=== PATIENT | female | born 1960 | race Caucasian/White ===

== ENCOUNTER → 2021-11-10 13:43 | Outpatient (BNVA) | payer OTHER, SELFPAY | PROVIDERS: Visit Provider Dietitian, Registered | DX: E66.9 Obesity, unspecified (principal); Z68.34 Body mass index [BMI] 34.0-34.9, adult; Z71.3 Dietary counseling and surveillance | CPT/HCPCS: 97802 ==

== ENCOUNTER → 2022-01-12 09:06 | Outpatient (BNVA) | payer OTHER, SELFPAY | PROVIDERS: Visit Provider Dietitian, Registered | DX: E66.9 Obesity, unspecified (principal); Z68.33 Body mass index [BMI] 33.0-33.9, adult | CPT/HCPCS: 97803 ==

== ENCOUNTER 2024-05-25 10:17 | Outpatient (REF) | payer OTHER, SELFPAY ==
--- NOTE | ~2024-05-25 | XR_ITS ---
EXAMINATION: XR SHOULDER 2 OR MORE VIEWS LEFT HISTORY: M25.512 - Pain in left shoulder COMPARISON: There are no prior studies available for comparison. FINDINGS: Four views of the left shoulder are submitted. Osseous mineralization is normal. There is no fracture or dislocation. The glenohumeral joint is maintained. There is moderate osteoarthritis of the AC joint, with joint space narrowing and osteophyte formation. A soft tissue calcification adjacent to the greater tuberosity of the humerus is likely related to the rotator cuff. XR/XR shoulder LT min 2V IMPRESSION: Moderate osteoarthritis of the AC joint. Probable rotator cuff calcification. Electronically signed by: Parvez Brady MD 05/26/2024 12:32 PM EDT
--- OUTSIDE RECORDS SUMMARY | 2024-05-25 13:41 | XMS_ITS | Clinical Summary ---
Author Organization [facility] Address [address] [place] [address] Care Team Providers Care Product Engineering Manager Name Role Phone Partha Graham Primary Care Provider [phone] Source Comments PLEASE NOTE, if this patient [...] asthma, unspecified asthma severity, unspecified whether persistent ([facility]) Dispense one nebulizer for patient with [...] asthma, unspecified asthma severity, unspecified whether persistent ([facility]) Inhale 2 Puffs into the lungs every [...] (obstructive sleep apnea) 08/27/2018 Overview (12/12/2018): 11/05/18, [facility], Yashira Dominguez CUTTER GRINDER OPERATOR: [facility], the [employer] respiratory [employer], has informed us that they were unable to connect with you to schedule set up with CPAP. We had discussed ordering this for treatment of sleep apnea. As they were unable to reach you, they have cancelled the order. 09/06/18, [facility], Home Sleep Apnea Testing, Kalia Olivares MD, Recommendations: 1. Start on AutoCPAP 8-15cm H2) with compliance data followed. 2. If started on AutoCPAP, [place] [employer] guidelines recommend that [...] diagnosed, CPAP machine given to patient through [facility] Constipation 04/09/2018 Class 2 obesity due [...] by [employer] Carpal tunnel syndrome 06/10/2016 Asthma ([facility]) 11/24/2013 Environmental allergies 11/24/2013 GERD (gastroesophageal reflux disease) 4 Overweight 11/24/2013 Encounters Date Type Department Care Team Description 05/23/2024 3:00 PM EDT Office Visit [facility] [address] [place] [address] Yazmin Lubin FNP Chronic left ear pain (Primary Dx); Acute effusion of left ear; Vertigo 05/01/2024 1:00 PM EDT Telemedicine Visit [facility] [address] [place] [phone] Partha Graham PA Uncomplicated asthma, unspecified asthma severity, unspecified whether persistent (Primary Dx); Primary hypertension 04/03/2024 5:20 PM EST Office Visit [facility] [address] [place] [phone] Partha Graham PA Primary hypertension (Primary Dx); [...] 06/25/2023 06/24/2022, 08/02/2020, 11/03/2017 FIT/gFOBT 08/04/2023 08/03/2022 [id number]-64 ( season) 2023 Imm-DTaP/Tdap/Td (4 - Td [...] BLOOD DRAW Edited Res ult - Final [employer] [address] [place] [address], [address] [facility] [id number] [place] [id number], * THINPREP PAP & HPV MRNA E6/E7 RFLX HPV 16,18/[address]/NG (07/14/2022 9:23 AM EDT) CHLAMYDIA TRACHOMATIS RNA, TMA NOT DETECTED NOT DETECTED [employer] NEISSERIA GONORRHOEAE RNA, TMA NOT DETECTED NOT DETECTED [employer] COMMENT [employer] CLINICAL INFORMATION See Note [employer] Comment:POSTMENOPAUSAL~ROUTI NE EXAM LMP See Note [employer] Comment:NONE GIVEN PREV. PAP See Note [employer] Comment:NONE GIVEN PREV. BX See Note [employer] Comment:NONE GIVEN SOURCE See Note [employer] Comment:Cervix STATEMENT OF ADEQUACY See Note [employer] Comment: Satisfactory for evaluation. Endocervical/transformation zone component present. INTERPRETATION/RESU LT See Note [employer] Comment:Negative for intraep ithelial lesion or malignancy. [employer] See Note [employer] Comment: KR, CT(ASCP) CT screening location: [address] ??[address] REVIEW [facility] See Note [employer] Comment: CMG, CT(ASCP) CT screening location: [address] ??[address] COMMENT [employer] HPV MRNA E6/E7 Not Detected Not Detected [employer] [facility] Comment: Methodology: Scleroscope Tester-Mediated Amplification This assay detects E6/E7 viral messenger RNA (mRNA) from 14 high-risk HPV types (16,18,31,33,35,39,45,51,52,56,58,59,66,68). Cervical sources are required for HPV testing. If a vaginal source from a patient who has had a total hysterectomy with removal of cervix was submitted, please contact the testing laboratory for alternative testing options. For additional information, please refer to http://[employer].Logical Apps/faq/KVL670g7 (This link if provided for information/ educational purposes only.) Swab Cervix uteri structure / Unknown 07/14/2022 9:23 AM EDT 07/15/2022 1:04 PM EDT Narrative [facility] - 07/21/2022 2:57 PM EDT EXPLANATORY NOTE: [...] test SurePath(TM) specimens have been determined by [employer]. The modifications have not been cleared or approved by the FDA. This assay has been validated pursuant to the CLIA regulations and is used for clinical purposes. For additional information, please refer to https://education.Logical Apps/faq/GML818 (This link is being provided for information/ educational purposes only.) Partha [facility] - NO BLOOD DRAW Final Resu lt [employer] [address] [address], [employer] [address] [address] * HIV 1/2 AG & AB W/RFLX (4TH GEN) (06/24/2022 10:14 AM EDT) HIV AG/AB, 4TH GEN NON-REAC TIVE NON-REAC TIVE [employer] Comment: HIV-1 antigen and HIV-1/HIV-2 antibodies were [...] ?? For additional information please refer to http://education.Logical Apps/faq/VLL591 (This link is being provided for informational/ educational purposes only.) The performance of this assay has not been clinically validated in patients less than 2 years old. Blood Blood / Unknown 06/24/2022 1 0:14 AM EDT 06/24/2022 10:14 AM EDT [facility] - BLOOD DRAW Final Result [employer] [address] [address], [employer] [address] [address] * (ABNORMAL) LIPID PANEL (06/24/2022 10:14 AM EDT) Pathologist [facility] CHOLESTEROL, TOTAL 240(H) <200 mg/dL [employer] [facility] HDL CHOLESTEROL 59 > OR = 50 mg/dL [employer] TRIGLYCERIDES 225(H) <150 mg/dL [employer] Comment: If a non-fasting specimen was collected, consider repeat triglyceride testing on a fasting specimen if clinically indicated. [place] et al. J. of Clin. Lipidol. 2015;9:129-169. LDL-CHOLESTEROL 145(H) 99 mg/dL (calc) [employer] Comment: Reference range: <100 Desirable range <100 mg/dL for primary prevention; ?? <70 mg/dL for patients with CHD or diabetic patients with > or = 2 CHD risk factors. LDL-C is now calculated using the Diogo-Regan calculation, which is a validated novel method providing better accuracy than the Friedewald equation in the estimation of LDL-C. Diogo ALONSO et al. ALEXANDRE. 2013;310(19): 6312-9269 (http://education.Sagebin/faq/UCV546) CHOL/HDLC RATIO 4.1 <5.0 (calc) [employer] NON-HDL CHOLESTEROL 181(H) <130 mg/dL (calc) [employer] Comment: For patients with diabetes plus 1 major ASCVD risk factor, treating to a non-HDL-C goal of <100 mg/dL (LDL-C of <70 mg/dL) is considered a therapeutic option. Blood Blood / Unknown 06/24/2022 1 0:14 AM EDT 06/24/2022 10:14 AM EDT Par[facility] - BLOOD DRAW Final Result [employer] [address] [address], [employer] [address] [place] [address] * COMPREHENSIVE METABOLIC PANEL (06/24/2022 10:14 AM EDT) [facility] GLUCOSE 99 65 - 99 mg/dL [employer] Comment: ?Fasting reference interval UREA NITROGEN (BUN) 17 7 - 25 mg/dL [employer] CREATININE (blood) 0.67 0.50 - 1.03 mg/dL [employer] EGFR 101 > OR = 60 mL/min/1 .73m2 [employer] Comment: The eGFR is based on the CKD-EPI 2020 equation. To calculate the new eGFR from a previous Creatinine or Cystatin C result, go to https://www.kidney.org/professionals/ kdoqi/gfr%5Fcalculator BUN/CREATININE RATIO NOT APPLICABLE 6 - 22 [employer] SODIUM 140 135 - 146 mmol/L [employer] POTASSIUM 4.1 3.5 - 5.3 mmol/L [employer] CHLORIDE 104 98 - 110 mmol/L [employer] CARBON DIOXIDE 27 20 - 32 mmol/L [employer] CALCIUM 9.7 8.6 - 10.4 mg/dL [employer] [facility] PROTEIN, TOTAL 6.9 6.1 - 8.1 g/dL [employer] [facility] ALBUMIN 4.4 3.6 - 5.1 g/dL [employer] [place] [employer] GLOBULIN 2.5 1.9 - 3.7 g/dL (calc) [employer] [facility] ALBUMIN/GLOBUL IN RATIO 1.8 1.0 - 2.5 (calc) [employer] [place] [employer] BILIRUBIN, TOTAL 0.5 0.2 - 1.2 mg/dL [employer] [facility] ALKALINE PHOSPHATASE 64 37 - 153 U/L [employer] [facility] AST 15 10 - 35 U/L [employer] [facility] ALT 16 6 - 29 U/L [employer] [facility] Blood Blood / Unknown 06/24/2022 1 0:14 AM EDT 06/24/2022 10:14 AM EDT [facility] - BLOOD DRAW Edited Result - Final [employer] [address] [address], [employer] [address] [address] * HEPATITIS C AB W/RFLX HCV RNA, QT, RT PCR (08/06/2020 3:25 PM EDT) HEPATITIS C ANTIBODY NON-REACT DEMARCUS NON-REACT DEMARCUS [employer] [facility] SIGNAL TO CUT-OFF 0.01 <1.[address] [employer] [facility] Comment: HCV antibody was non-reactive. There is no laboratory evidence of HCV infection. In most cases, no further action is required. However, if recent HCV exposure is suspected, a test for HCV RNA (test code 17127) is suggested. For additional information please refer to http://education.Logical Apps/faq/KUJ87l2 (This link is being provided for informational/ educational purposes only.) Blood Blood / Unknown 08/06/2020 3 :25 PM EDT 08/06/2020 3:25 PM EDT Narrative [employer] - 08/07/2020 2:03 AM EDT FASTING:NO Partha [facility] - BLOOD DRAW Edited Result - Final [facility] [address] [address], [facility] [address] [address] from Last 3 Months or Most Recently Relevant to Health Maintenance Insurance [facility] Member Subscriber Plan / Payer (Ef fective 2020-Present) Name:Elina Muhammad Relation to Subscriber:Self Name:Elina Muhammad Payer ID:[id number] Group ID:Not on file Type:Indemnity Address: [place] [address] [place] [address] Care Teams Product Engineering Manager Relationship Specialty Start Date End Date Partha Graham PA [address] [place] [address] PCP - General Internal Medicine 09/30/17
--- OUTSIDE RECORDS SUMMARY | 2024-05-25 13:41 | XMS_ITS | Encounter Summary ---
Author Organization [facility] Address [address] [place] [address] Care Team Providers Care Farm Appraiser Name Role Phone Partha Graham Primary Care Provider [phone] Reason for Referral * Otolaryngology (Urgent) - Pending Review Specialty Diagnoses / Procedures Referred By Nancy cordoba Referred To Contact Diagnoses Chronic left ear pain Yazmin Lubin FNP [address] [place] [phone] Phone: tel: fax: [facility] [address] [place] [address] Phone: tel: Referral ID Status Reason Start Date Expiration Date Visits Requested Visits Authorized [id number] Pending Review Specialty Services Required 05/23/2024 05/23/2025 1 1 Comments The patient with complains of recurrent ear pain - please evalatate and treat - Reason for Visit * Reason Comments Ear Pain Dizziness Encounter Details Date Type Department Care Team ([facility] st Contact Info) Description 05/23/2024 3:00 PM EDT Office Visit [facility] [address] [place] [address] Yazmin Lubin FNP [address] [place] [phone] Chronic left ear pain (Primary Dx); Acute [...] from the original note were not included. [id number] Vertigo (Unknown Cause) Vertigo is a false [...] nausea, vomiting, and dizziness, you may use zlaz-qkl-vjlzbbh motion sickness pills. If you have any questions about an bvue-fua-jqiqxaj medicine or its side effects, talk with [...] speech Last Reviewed Date: 2021 00:00:00 ?? [phone] [employer]. All rights reserved. This information is not intended as a substitute for professional medical care. Always follow your healthcare professional's instructions. Y IRIZARRY - BALJEET Comer - 05/23/2024 3:29 PM EDT Images from the original note were not included. [id number] Dizziness (Vertigo) and Balance Problems: Diagnostic Tests An cracker dough mixer specializes in problems of the ear, nose, [...] make you dizzy in some cases. ?? Long Lane-Hallpike maneuver. Your healthcare provider will gently turn [...] causes. Last Reviewed Date: 2023 00:00:00 ?? [phone] [employer]. All rights reserved. This information is not intended as a substitute for professional medical care. Always follow your healthcare professional's instructions. Y IRIZARRY - BALJEET Comer - 05/23/2024 3:28 PM EDT Images from the original note were not included. 10996 Managing Dizziness (Vertigo) With Medicines Although medicines [...] from your medicines. Before using a new ppvf-jfk-dctkmux medicine, check with your provider or the [...] fainting. Last Reviewed Date: 2024 00:00:00 ?? [phone] [employer]. All rights reserved. This information is not [...] documented as of this encounter Care Teams Farm Appraiser Relationship Specialty Start Date End Date Partha Graham PA [address] [place] [address] PCP - General Internal Medicine 09/30/17 documented as of this encounter
--- OUTSIDE RECORDS SUMMARY | 2024-05-25 13:41 | XMS_ITS | Clinical Summary ---
Author Organization [facility] Address [address] [place] [address] Phone Care Team Providers Care Vp Emerging Media Name Role Phone Partha Graham Primary Care Provider [phone] Allergies Active Allergy Reactions Criticality Noted Date [...] Description 05/19/2024 2:15 PM EDT Ancillary Procedure [facility] [address] [place] [address] Atypical chest pain 03/02/2024 9:38 AM EST - 03/02/2024 11:59 PM EST Hospital Encounter [facility] [place] [address] [place] [phone] Low back pain, unspecified Discharge Disposition: Home [...] DX: Abnormal Pap smear of cervix; COMMENT: [id number] Cone biopsy Unspecified asthma(493.90) DX:Un specified asthma(493.90); [...] Signed Date: 03/02/2024 13:58 ET Workstation ID: [id number] Transcribed By: Self Edit Transcribed Date: 03/02/2024 [...] Signed Date: 03/02/2024 13:58 ET Workstation ID: [id number] Transcribed By: Self Edit Transcribed Date: 03/02/2024 13:28 ET Result [facility] Partha MENDOZA IMG BI PROCEDURES Final Result * Annual BMP Blood Test (12/31/2021) [facility] Annual BMP Blood Test abstracted Historical Provider HEALTH MAINTENANCE Final Result * HIV Screening (07/04/2021) [facility] HIV Screening abstracted [facility] Provider HEALTH MAINTENANCE Final Result * Hepatitis C Screening (07/04/2021) [facility] Hepatitis C Screening abstracted [facility] Provider HEALTH MAINTENANCE Final Result * (ABNORMAL) Lipid panel (07/04/2021) [facility] LDL/HDL Ratio 5(A) 0 - 4 Triglycerides 436(A) 0 - 150 mg/dL Cholesterol 248(A) 0 - 200 mg/dL HDL 52 >=40 mg/dL LDL Cholesterol 109(A) 0 - 100 mg/dL Blood Venous blood specimen / Unknown Result [facility] Provider LAB BLOOD ORDERABLES Kavya l Result * Cervical Cancer Screening: HPV (12/06/2019) [facility] Cervical Cancer Screening: HPV negative, abstracted Result [facility] Provider HEALTH MAINTENANCE Final Result * Colonoscopy (08/02/2014) [facility] Colonoscopy no interpretation , abstracted Anatomical Region Laterality Modality Other [facility] Provider HEALTH MAINTENANCE Final Result from Last 3 Months or Most Recently Relevant to Health Maintenance Insurance [facility] [facility] MED[employer] Member Subscriber Plan / Payer (Ef fective 2020-Present) Name:Elina Muhammad Relation to Subscriber:Self Name:Elina Muhammad Payer ID:[id number] Group ID:[id number] Type:Not on file Address: [facility] [address] [place] [id number] Care Teams Vp [employer]ging Media Relationship Specialty Start Date End Date Partha Graham PA [address] [place] [address] PCP - General Physician Human Resources Team Member 03/02/24
== END 2024-05-25 10:18 | disposition home or self-care (01) ==
LOC: HO.HMGCX 10:17
PROVIDERS: PCP Physician Assistant; Visit Provider Internal Medicine Rheumatology
DX: M25.512 Pain in left shoulder (principal); M15.4 Erosive (osteo)arthritis; M17.0 Bilateral primary osteoarthritis of knee
CPT/HCPCS: 73030; 99212

== ENCOUNTER 2024-05-25 10:17 | Outpatient (AMB) | payer OTHER, SELFPAY ==
--- NOTE | 2024-05-25 10:19 | A.OFFVIS_ITS ---
Vital Signs 05/25/24 10:20 Height 5 ft 1 in Weight 181 lb 3.52 oz BMI 34.2 BP 124/76 Blood Pressure Location Lt brachial Position Sitting Pulse 76 Pulse Source Pulse Oximeter Pulse Oximetry (%) 97 Oxygen Delivery Method Room Air Intake Visit Reasons: RA Intake Note: Patients presents today for a Ra follow up of both hands Accompanied by: Self / Same As Patient Allergies celecoxib [From Celebrex] Allergy (Intermediate, Verified 05/25/24 10:23) Hives HPI HPI RA: Details: Left shoulder pain for a few months. Hard to lift. Hard to tie bra. Rainy days and snow days exacerbate the pain. She does shoulder exercises at home. She continues to have pain in her hands. Right 2nd finger is swollen. She has limited with lifting not more than 5 lb with her hands due to pain. She has been using naproxen and Tylenol PRN pain. She does stretches for her shoulder sometimes. She reports compliance with hand exercises regularly learned from PT in the past. Knee pain improved with cortisone injection from last visit spring/early summer. Review of Systems Const All systems reviewed & are unremarkable except as noted in HPI and below Physical Exam Vital Signs: Last Vital Signs Pulse 76 05/25/24 10:20 BP 124/76 05/25/24 10:20 Pulse Ox 97 05/25/24 10:20 Oxygen Delivery Method Room Air 05/25/24 10:20 BMI result Body Mass Index 34.2 Const Other: General: Comfortable CVS: RRR Respiratory: clear to auscultation bilaterally. Good respiratory effort Skin: No lesions seen MSK: Tender to palpate left anterior shoulder. Normal range of motion of shoulders. She has pain in left shoulder with active range of motion. Tender to palpate right 4th PIP. Judy's nodes and Heberden's nodes present. She is unable to staff reporter her right hand. Nontender knees. Normal range of motion of knees. Assessment & Plan Assessment & Plan (1) Left shoulder pain: Comment: Differential diagnosis includes chronic rotator cuff tendinopathy versus osteoarthritis. We discussed conservative management. Code(s): M25.512 - Pain in left shoulder Category: Medical Plan: PT ordered X-ray left shoulder ordered She will try Tylenol 325 mg x 2 or 4 once when needed for shoulder pain. We discussed the maximum daily dose of acetaminophen as 4000 mg daily. Return to clinic in 3 months (2) Erosive osteoarthritis of hands, bilateral: Comment: Pain is uncontrolled. She has chronic synovitis right 4th PIP previously failed intra-articular cortisone injection but had benefit with short course of prednisone. She agreed to try short course of prednisone again. Rheumatology history: Meloxicam ineffective. Chronic right 4th PIP synovitis failed intra-articular cortisone injection but responsive to low-dose prednisone course. Naproxen PRN helpful. HCQ discussed but patient did not want to move forward due to fear of side effects. Code(s): M15.4 - Erosive (osteo)arthritis Category: Medical Plan: Prednisone prescribed Continue to do hand exercises daily learned from PT in the past Avoid naproxen when on prednisone Return to clinic in 3 months (3) Osteoarthritis of knees, bilateral: Comment: Pain is controlled with last cortisone injections 2023. Code(s): M17.0 - Bilateral primary osteoarthritis of knee Category: Medical Qualifiers: Osteoarthritis type: primary Qualified Code(s): M17.0 - Bilateral primary osteoarthritis of knee Plan: Monitor clinically [facility] last 3 clinic note Return to clinic in 3 months Orders: Orders XR shoulder LT min 2V Today M25.512 - Pain in left shoulder PT Evaluation and Treatment Today M25.512 - Pain in left shoulder Medications: New prednisone Take 2 tablet daily 7 days then 1 tablet daily 1 week then stop. Take prednisone with food. Hold naproxen. 5 mg PO DIRECTED 21 tabs 0RF Coding Level of Care Code Est Pt Level 4 (59258) Complex EM visit Add On G2211 Diagnoses Left shoulder pain M25.512 Erosive osteoarthritis of hands, bilateral M15.4 Primary osteoarthritis of both knees M17.0 Osteoarthritis type: primary Time Spent (min) 30
[2024-05-25 10:20] VITALS: BP 124/76; PULSE 76; O2SAT 97; BMI 34.2
--- OUTSIDE RECORDS SUMMARY | 2024-05-25 11:09 | XMS_ITS | Clinical Summary ---
Author Organization [facility] Address [address] [place] [address] Phone Care Team Providers Care Meter Installer Name Role Phone Partha Graham Primary Care Provider [phone] Allergies Active Allergy Reactions Criticality Noted Date Comments Celecoxib Hives 03/15/2019 Medications acetaminophen (TYLENOL) 325 mg tablet Take 1 tablet (325 mg total) by mouth 3 times daily as needed. 4 Active albuterol HFA (PROAIR HFA ; PROVENTIL HFA ; VENTOLIN HFA) 90 mcg/actuation inhaler Inhale 2 Puffs into the lungs every 4 hours as needed for Cough or Wheezing. 8 Active propylene glycol-glycerin (ARTIFICIAL TEARS) 1-0.3 % drops 15 mL. 2 Active fluticasone propionate (FLONASE) 50 mcg/actuation nasal spray 2 sprays to each nostril daily 2 Active loratadine (CLARITIN) 10 mg tablet Take 1 tablet (10 mg total) by mouth daily. 4 Active NON FORMULARY POLYETHYL GLYCOL-PROPYL GLYCOL OP- apply to the eye. Active Active Problems Problem Noted Date Diagnosed Date H. pylori infection 01/01/2022 Lichen sclerosus 03/08/2017 Carpal tunnel syndrome 06/10/2016 Asthma 11/24/2013 GERD (gastroesophageal reflux disease) 4 Overweight 11/24/2013 Encounters Date Type Department Care Team Description 05/19/2024 2:15 PM EDT Ancillary Procedure [facility] [address] [place] [address] Atypical chest pain 03/02/2024 9:38 AM EST - 03/02/2024 11:59 PM EST Hospital Encounter [facility] [place] [address] [place] [id number] Low back pain, unspecified Discharge Disposition: Home or Self Care from Last 3 Months Immunizations Name Administration Dates Next Due Influenza Quadravalent, MDCK , 0.5ml, with preservative (Flucelvax) 6mo and older 11/12/2016 Influenza trivalent, with pr eservative (Fluzone; Afluria) 6mo and older 01/09/2016,11/24/2013 Measles / Rubella 11/04/2009 Tdap Tetanus diptheria acell ular pertussis (Boostrix; Adacel) 7yo and older 11/24/2013,11/04/2009 Surgical History Surgery Date Site/Laterality Comments TONSILLECTOMY PROCEDURE: HISTORICAL TONSILLECTOMY OTHER SURGICAL HISTORY 03/06/13 PROCEDURE: MAMMOGRAM COLONOSCOPY 2014 PROCEDURE: HISTORICAL COLONOSCOPY; COMMENT: minimal diverticulosis Medical History Medical History Date Comments Abnormal Pap smear of cervix DX: Abnormal Pap smear of cervix; COMMENT: [id number] Cone biopsy Unspecified asthma(493.90) DX:Un specified asthma(493.90); COMMENT: controlled with inhalers Other and unspecified noninf ectious gastroenteritis and colitis(558.9) DX:Other and unspec ified noninfectious gastroenteritis and colitis(558.9); COMMENT: gastritis Diverticulosis of colon (wit hout mention of hemorrhage) 08/02/2014 DX:Diverticulosis of colon ( without mention of hemorrhage) Family History Medical History Relation Name Comments Coronary artery disease Father Diabetes Father Other: bladder cancer Maternal Grandmother (originally stated to be ovarian ca) eval done by [facility] Hypertension Mother osteoarthritis Diabetes Sister 1 Diabetes Sister 2 Relation Name Status Comments Father Maternal Grandmother Mother Sister 1 Sister 2 Social History Tobacco Use Types Packs/Day Years Used Date Smoking Tobacco: Never Smokeless Tobacco: Never Alcohol Use Standard Drinks/Week Comments No 0 (1 standard drink = 0.6 oz pur e alcohol) Comments No Sex and Gender Information Value Date Recorded Sex Assigned at Female 03/02/2024 8:04 AM EST Legal Sex Female 4:39 AM EST Gender Identity Female 03/02/2024 8:04 AM EST Sexual Orientation Straight 03/02/2024 8: 04 AM EST Obstetrics History Para Term AB IAB SAB Ectopic Multiple Livin g Live Births 3 Last Filed Vital Signs Vital Sign Reading Time Taken Comments Blood Pressure 157/85 05/19/2024 2:03 PM EDT Pulse 70 10/27/2022 1:37 PM EDT Temperature - - Respiratory Rate - - Oxygen Saturation - - Inhaled Oxygen Concentration - - Weight 82.6 kg (182 lb) 05/19/2024 2:03 PM EDT Height 61 cm (2' 0.02 ) 05/19/2024 2:03 PM EDT Body Mass Index 221.86 05/19/2024 2:03 PM EDT Plan of Treatment Health Maintenance Due Date Last Done Comments Zoster Vaccines (1 of 2) 2012 Pneumococcal Vaccine: 50+ Years (2 of 2 - PCV) 04/06/2019 04/06/2018 Pneumococcal Vaccine: Pediatrics (0 to 5 Years) and At-Risk Patients (6 to 64 Years) (2 of 2 - PCV) 04/06/2019 04/06/2018 Medicare Annual Wellness Visit 01/31/2022 Social Influencers of Health Screening 01/31/2022 RSV Immunization Adult Patients (1 - Risk 60-74 years 1-dose series) 2022 COVID-19 Vaccine ( - season) 2023 DTaP,Tdap,and Td Vaccines (3 - Td or Tdap) 11/25/2023 11/24/2013, 11/04/2009 Hypertension/CHF/CAD Annual BMP Blood Test 05/19/2024 06/24/2022, 12/31/2021 Influenza Vaccine (Season Ended) 2024 12/13/2018, 11/03/2017, 11/12/2016, Additional history exists Cervical Cancer Screening: HPV 12/05/2024 12/06/2019 Depression Screening 02/07/2025 02/08/2024 Colorectal Cancer Screening: FIT-DNA (Cologuard) 08/03/2025 08/03/2022 Breast Cancer Screening 03/02/2026 03/02/19, 07/07/2021, 01/12/2017 Cholesterol Screening (Lipid Panel) 06/25/2027 06/24/2022, 06/24/2022, 07/04/2021, Additional history exists Colorectal Cancer Screening: Colonoscopy Discontinued 08/02/2014 HIV Screening Completed 07/04/2021 Hepatitis C Screening Completed 07/04/2021, 021 HIB Vaccines Aged Out No longer eligi ble based on patient's age to complete this topic HPV Vaccines Aged Out No longer eligi ble based on patient's age to complete this topic Hepatitis A Vaccines Aged Out No long er eligible based on patient's age to complete this topic Hepatitis B Vaccines Aged Out No long er eligible based on patient's age to complete this topic IPV Vaccines Aged Out No longer eligi ble based on patient's age to complete this topic MMR Vaccines Aged Out No longer eligi ble based on patient's age to complete this topic Meningococcal ACWY Vaccine Aged Out N o longer eligible based on patient's age to complete this topic Meningococcal B Vacine Aged Out No lo nger eligible based on patient's age to complete this topic RSV Immunization Patients Under 20 months Aged Out No longer eligible based on patient's age to complete this topic Varicella Vaccines Aged Out No longer eligible based on patient's age to complete this topic Procedures Procedure Name Priority Date/Time Associated Diagnosis Comments STRESS TEST ONLY EXERCISE Routine 05/19/2024 2:33 PM EDT Atypical chest pain MG MAMMO DIGITAL SCREENING W REYNALDO BILAT Routine 03/02/2024 9:56 AM EST Low back pain, unspecified ANNUAL BMP BLOOD TEST Routine 12/31/2021 HEPATITIS C SCREENING Routine 07/04/2021 HIV SCREENING Routine 07/04/2021 LIPID PANEL Routine 07/04/2021 HPV Routine 12/06/2019 COLONOSCOPY Routine 08/02/2014 from Last 3 Months or Most Recently Relevant to Health Maintenance Results * Exercise stress test (05/19/2024 2:33 PM EDT) Exercise/injec tion duration (min) 5 CV STRESS ONLY Exercise/injec tion duration (sec) 30 CV STRESS ONLY Peak SBP 170 mmHg CV STRESS ONLY Peak DBP 88 mmHg CV STRESS ONLY Peak HR 155 bpm CV STRESS ONLY Baseline HR 90 bpm CV STRES S ONLY Baseline SBP 157 mmHg CV STRE SS ONLY Baseline DBP 85 mmHg CV STRE SS ONLY Estimated workload 7.0 METS CV STRESS ONLY Percent HR 97 % CV STRESS ONLY Rate Pressure Product 26,350.0 mmHg*bpm CV STRESS ONLY Target HR 135 bpm CV STRESS ONLY Angina Index 0 CV STRE SS ONLY Max HR Percent 97 % CV ST RESS ONLY Anatomical Region Laterality Modality Cardiac Diagnost ic 05/19/2024 2:04 PM EDT 05/19/2024 2:35 PM EDT Narrative 05/22/2024 3:49 PM EDT ?Exercise stress test was performed. ??Patient exercised for 5-1/2 minutes to 97% of max predicted heart rate achieving a 7 MET workload. ?? Patient reported no symptoms during the stress test. Exercise capacity was average. Normal blood pressure response. ??Normal heart rate response to exercise. ?There were no symptoms of chest pain or shortness of breath reported with stress. ?ECG portion was nondiagnostic due to baseline ECG abnormalities. Stress ECG was non-diagnostic due to baseline ECG abnormalities. ??If clinical suspicion for ischemic heart disease is high, would consider repeating exercise stress testing with imaging. Stress Findings A Abhilash protocol stress test was performed. Overall, the patient's exercise capacity was average. The patient reached stage 2. Total stress time was 5 min and 30 sec. The patient experienced no angina during the test. The test was stopped because the patient experienced fatigue. The patient's hemodynamic response was adequate for diagnosis. Blood pressure demonstrated a normal response. Heart rate demonstrated a normal response. The patient reported no symptoms during the stress test. ECG 63-year-old female with hypertension and intermittent chest pain into rule out ischemia. Patient not on cardiac medications during testing Baseline EKG: Sinus rhythm with inverted T waves in lead III, V2, V3, V4, V5, V6. There is exacerbation of baseline ST abnormality during stress. There were no arrhythmias during recovery. The result of the stress ECG was non-diagnostic for ischemia due to baseline ECG abnormalities. Partha MENDOZA CV STRESS PROCEDURES Final Res ult * MG Mammo Digital Screening w Reynaldo bilat (03/02/2024 9:56 AM EST) Anatomical Region Laterality Modality Breast Bilateral Mammography 03/02/2024 1:20 PM EST Impressions 03/02/2024 1:58 PM EST No mammographic evidence of malignancy. ?? No suspicious interval change. A negative mammogram in the presence of a clinically suspicious palpable abnormality does not preclude the possibility of malignancy or alter the indications for biopsy. ASSESSMENT: ?? BI-RADS 1: NEGATIVE RECOMMENDATION(S): 1: Routine screening mammogram BILATERAL in 1 year. -------- FINAL REPORT -------- Dictated By: Kings Jean Dictated Date: 03/02/2024 13:20 ET Assigned Physician: Kings Jean Reviewed and Electronically Signed By: Kings Jean Signed Date: 03/02/2024 13:58 ET Workstation ID: [id number] Transcribed By: Self Edit Transcribed Date: 03/02/2024 13:28 ET Narrative 03/02/2024 1:58 PM EST EXAM: ??SCREENING MAMMOGRAPHY, BILATERAL HISTORY: ??SCREENING. ??No additional history. COMPARISON: ??08/27/2023, 07/06/2022, 11/14/2019 TECHNIQUE: Synthesized CC and MLO projections of each breast. ??Tomosynthesis of each breast in the CC and MLO projections. ADDITIONAL IMAGING: None Computer-aided detection was employed with the iCAD ??profound AI 3-D. TISSUE DENSITY: There are scattered areas of fibroglandular density. (BI-RADS category B) FINDINGS: RIGHT BREAST: No suspicious mass. No suspicious calcification. No distortion. ?? No additional suspicious right breast findings LEFT BREAST: No suspicious mass. No suspicious calcification. No distortion. ?? No additional suspicious left breast findings Procedure Note Kings Jean MD - 03/02/2024 EXAM: SCREENING MAMMOGRAPHY, BILATERAL HISTORY: SCREENING. No additional history. COMPARISON: 08/27/2023, 07/06/2022, 11/14/2019 TECHNIQUE: Synthesized CC and MLO projections of each breast.Tomosynthesis of each breast in the CC and MLO projections. ADDITIONAL IMAGING: None Computer-aided detection was employed with the iCAD profound AI 3-D. TISSUE DENSITY: There are scattered areas of fibroglandular density.(BI-RADS category B) FINDINGS: RIGHT BREAST: No suspicious mass. No suspicious calcification. No distortion. Noadditional suspicious right breast findings LEFT BREAST: No suspicious mass. No suspicious calcification. No distortion. Noadditional suspicious left breast findings IMPRESSION: No mammographic evidence of malignancy. No suspicious interval change. A negative mammogram in the presence of a clinically suspicious palpableabnormality does not preclude the possibility of malignancy or alter theindications for biopsy. ASSESSMENT: BI-RADS 1: NEGATIVE RECOMMENDATION(S): 1: Routine screening mammogram BILATERAL in 1 year. -------- FINAL REPORT -------- Dictated By: Kings Jean Dictated Date: 03/02/2024 13:20 ET Assigned Physician: Kings Jean Reviewed and Electronically Signed By: Kings Jean Signed Date: 03/02/2024 13:58 ET Workstation ID: [id number] Transcribed By: Self Edit Transcribed Date: 03/02/2024 13:28 ET Result [facility] Partha MENDOZA IMG BI PROCEDURES Final Result * Annual BMP Blood Test (12/31/2021) [facility] Annual BMP Blood Test abstracted Historical Provider HEALTH MAINTENANCE Final Result * HIV Screening (07/04/2021) [facility] HIV Screening abstracted [facility] Provider HEALTH MAINTENANCE Final Result * Hepatitis C Screening (07/04/2021) [facility] Hepatitis C Screening abstracted [facility] Provider HEALTH MAINTENANCE Final Result * (ABNORMAL) Lipid panel (07/04/2021) [facility] LDL/HDL Ratio 5(A) 0 - 4 Triglycerides 436(A) 0 - 150 mg/dL Cholesterol 248(A) 0 - 200 mg/dL HDL 52 >=40 mg/dL LDL Cholesterol 109(A) 0 - 100 mg/dL Blood Venous blood specimen / Unknown Result [facility] Provider LAB BLOOD ORDERABLES Kavya l Result * Cervical Cancer Screening: HPV (12/06/2019) [facility] Cervical Cancer Screening: HPV negative, abstracted Result [facility] Provider HEALTH MAINTENANCE Final Result * Colonoscopy (08/02/2014) [facility] Colonoscopy no interpretation , abstracted Anatomical Region Laterality Modality Other [facility] Provider HEALTH MAINTENANCE Final Result from Last 3 Months or Most Recently Relevant to Health Maintenance Insurance [employer] MEDICARE Member Subscriber Plan / Payer (Ef fective 2020-Present) Name:Elina Muhammad Relation to Subscriber:Self Name:Elina Muhammad Payer ID:[id number] Group ID:[id number] Type:Not on file Address: [facility] [address] [address] Care Teams Meter Installer Relationship Specialty Start Date End Date Partha Graham PA [address] [place] [address] PCP - General Physician Care Technician 03/02/24
--- OUTSIDE RECORDS SUMMARY | 2024-05-25 11:10 | XMS_ITS | Clinical Summary ---
Author Organization [facility] Address [address] [place] [address] Care Team Providers Care Excavating Supervisor Name Role Phone Partha Graham Primary Care Provider [phone] Source Comments PLEASE NOTE, if this patient is a minor, it may be UNLAWFUL to discuss sensitive information that is contained in these records (such as FAMILY PLANNING, MENTAL HEALTH or SUBSTANCE ABUSE) with the minor patient's parent or other person without the patient's specific authorization.[facility] Allergies Active Allergy Reactions Criticality Noted Date Comments Cats 04/06/2018 Celecoxib Hives 08/16/2018 Losartan Cough 05/01/2024 Pollen Extracts 04/06/2018 Medications EPINEPHrine (EPIPEN) 0.3 mg/0.3 mL pen injector INJECT 1 PEN IN THE MUSCLE ONE TIME DIRECTED 05/27/19 23 Active propylene glycol-glycerin 1-0.3 % drop 15 mL 06/21/19 22 Active pantoprazole (PROTONIX) 20 mg EC tablet TAKE 1 TABLET BY MOUTH TWICE DAILY FOR 14 DAYS 07/22/19 23 Active ibuprofen 600 mg tabletIndication s:Toe pain, right Take 1 Tablet by mouth 4 (four) times daily as needed for pain 90 Tablet 1 12/17/19 23 Active nebulizer accessoriesIndic ations:Uncomplic ated asthma, unspecified asthma severity, unspecified whether persistent ([facility]HS-HCC) Dispense one nebulizer for patient with asthma. 1 Each 02/02/20 23 Active nebulizer and compressorIndica tions:Uncomplica radha asthma, unspecified asthma severity, unspecified whether persistent (HHS-HCC) Dispense one nebulizer for patient with asthma. 1 Each 02/02/20 23 Active nebulizersIndica tions:Uncomplica radha asthma, unspecified asthma severity, unspecified whether persistent ([facility]) Dispense one nebulizer for patient with asthma. 1 Each 02/02/20 23 Active ipratropium-albu teroL (DUONEB) 0.5 mg-3 mg(2.5 mg base)/3 mL nebulizer solutionIndicati ons:Uncomplicate d asthma, unspecified asthma severity, unspecified whether persistent (HHS-HCC) Take 3 mL by nebulization 4 (four) times daily 90 mL 2 02/02/20 23 Active azithromycin (ZITHROMAX) 250 mg tabletIndication s:Bronchitis Take 2 tabs by mouth today, followed by 1 tab by mouth for four more days. 6 Tablet 02/02/20 23 Active loratadine (CLARITIN) 10 mg tablet TAKE 1 TABLET BY MOUTH EVERY DAY 90 Tablet 1 05/17/19 24 Active blood pressure monitorIndicatio ns:Primary hypertension,Aty pical chest pain Blood pressure goal < 140/90 1 Kit 04/03/19 25 Active albuterol HFA 90 mcg/actuation inhalerIndicatio ns:Uncomplicated asthma, unspecified asthma severity, unspecified whether persistent ([facility]) Inhale 2 Puffs into the lungs every 4 to 6 (four to six) hours as needed for shortness of breath or wheezing 8.5 g 1 05/02/19 25 Active acetaminophen (TYLENOL) 325 mg tablet Take 1 Tablet by mouth 3 (three) times daily as needed for pain or fever 120 Tablet 1 05/02/19 25 Active naproxen (NAPROSYN) 500 mg tablet Take 1 Tablet by mouth 2 (two) times daily as needed for other reason (pain) 60 Tablet 1 05/05/19 25 Active meclizine (ANTIVERT) 25 mg tabletIndication s:Vertigo Take 1 Tablet by mouth 2 (two) times daily as needed for dizziness for up to 30 days 30 Tablet 05/24/19 25 025 Active pseudoephedrine HCl (SUDAFED) 120 mg 12 hr tabletIndication s:Acute effusion of left ear Take 120 mg by mouth 2 (two) times daily for 5 days 10 Tablet 05/24/19 25 025 Active albuterol HFA 90 mcg/actuation inhaler INHALE 2 PUFFS BY MOUTH EVERY 4 TO 6 HOURS NEEDED 8.5 g 1 05/17/19 24 025 Discontin ued(Reord er (E-Cancel Not Sent)) acetaminophen (TYLENOL) 325 mg tablet TAKE 1 TABLET BY MOUTH THREE TIMES DAILY NEEDED 120 Tablet 1 05/17/19 24 025 Discontin ued(Reord er (E-Cancel Not Sent)) losartan (COZAAR) 25 mg tabletIndication s:Primary hypertension Take 1 Tablet by mouth once daily 60 Tablet 2 04/03/19 25 025 Discontin ued(Cance lled) naproxen (NAPROSYN) 500 mg tablet Take 1 Tablet by mouth 2 (two) times daily with a meal 60 Tablet 1 05/02/19 25 025 Discontin ued(Reord er (E-Cancel Not Sent)) Active Problems Patient Care Coordination No te Formatting of this note migh t be different from the original. Pre Visit Plan, 12/13/18, for Partha Grider PA-C patient in for Headaches concern. Kimberly Inman. 04/14/18, US Pelvis, [facility], Impression: There is a 4.4 x 2.5 x 2.2 cm left posterior uterine leiomyoma, minimally increased from 3.4 x 2.4 x 3.1 cm on the prior study of 12/07/2017. The septated left ovarian cyst seen on the prior examination has resolved. - Uterine Leiomyoma added to Pt's Problem list 12/12/18 by kimberly. Problem Noted Date Diagnosed Date Financial difficulties 02/08/2024 Helicobacter pylori infection 01/01/2022 Diabetes mellitus screening 03/02/2019 Seborrheic dermatitis, unspecified 03/02/2019 Depression 03/02/2019 Primary insomnia 12/13/2018 Chronic tension-type headache, not intractable 1 Tendinitis of finger of left hand 12/12/2018 Overview (12/12/2018): 09/30/18, [facility] note, A&P: (L) thumb tendinitis - placed in spica splint and recommended f/u with orthopedists soon. Take Naprosyn OTC and don't do heavy lifting. Uterine leiomyoma 12/12/2018 Overview (12/12/2018): 04/14/18, US Pelvis, [facility], Impression: There is a 4.4 x 2.5 x 2.2 cm left posterior uterine leiomyoma, minimally increased from 3.4 x 2.4 x 3.1 cm on the prior study of 12/07/2017. The septated left ovarian cyst seen on the prior examination has resolved. 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 We had discussed ordering this for treatment of sleep apnea. As they were unable to reach you, they have cancelled the order. 09/06/18, [facility], Home Sleep Apnea Testing, Kalia Olivares MD, Recommendations: 1. Start on AutoCPAP 8-15cm H2) with compliance data followed. 2. If started on AutoCPAP, [employer] guidelines recommend that they be referred to sleep clinic to help make sure their machines and masks are appropriately adjusted to the proper settings. 3. Patient should sleep in non- supine position. A positional device (E0190) could be ordered. 4. Patient should avoid alchol and sedative containing medications. 5. Weight loss recommended. 6. If nasal congestion is contributing to the sleep apnea or impeding Tx with CPAP, consider ipratropium nasal 0.03% one spray (21mcg) each nostril QHS prn. Sleep Study 08/11/18 - TAMMI diagnosed, CPAP machine given to patient through [facility] Constipation 04/09/2018 Class 2 obesity due to exces s calories without serious comorbidity with body mass index (BMI) of 35.0 to 35.9 in adult 04/09/2018 Osteoarthritis of hand 04/07/2018 Overview (07/06/2018): Sees [facility] - 5-14-19 celebrex 100mg 1 tab BID, labs, RTC in 3 months. 04/07/18 injections, continue diclofenac gel, d/c meloxicam. RTC in 3 months. Seasonal allergies 04/06/2018 PERICO positive 01/17/2018 Overview (12/12/2018): 01/17/18, lab result with Partha Graham: PERICO did come back elevated, at 1:320. She is being followed by rheumatology, and plan to follow up with them for further evaluation and treatment. Lichen sclerosus 03/08/2017 Family history of ovarian cancer 11/24/2016 Overview (06/19/2020): Overview: Did not book genetic appt 12/08 Overview: Did not book genetic appt 12/08 (originally stated to be ovarian ca) eval done by [facility] Did not book genetic appt 12/08 (originally stated to be ovarian ca) eval done by [facility] Carpal tunnel syndrome 06/10/2016 Asthma ([facility]) 11/24/2013 Environmental allergies 11/24/2013 GERD (gastroesophageal reflux disease) 4 Overweight 11/24/2013 Encounters Date Type Department Care Team Description 05/23/2024 3:00 PM EDT Office Visit [facility] [address] [place] [address] Yazmin Lubin FNP Chronic left ear pain (Primary Dx); Acute effusion of left ear; Vertigo 05/01/2024 1:00 PM EDT Telemedicine Visit [facility] [address] [place] [phone] Partha Graham PA Uncomplicated asthma, unspecified asthma severity, unspecified whether persistent (Primary Dx); Primary hypertension 04/03/2024 5:20 PM EST Office Visit [facility] [address] [place] [phone] Partha Graham PA Primary hypertension (Primary Dx); Atypical chest pain from Last 3 Months Immunizations Immunization Administration Dates Next Due Diphtheria, pertussis, tetan us, hepatitis B, Haemophilus Influenza Type b, (Pentavalent) - Non US 11/04/2009 Flu, Multi Dose 0.5 ML 12/13/2018,11/03/2017 INFLUENZA, SEASONAL, INJECTABLE 01/09/20 16,11/24/2013,11/10/2011,07/23,12/30/2007 Influenza, Whole 02/02/2007 Measles - Rubella, Live 11/04/2009 PNEUMOCOCCAL POLYSACCHARIDE PPV23 04/06/2018 Rubella, Live 11/04/2009 TDAP 11/24/2013,11/04/2009 Family History Medical History Relation Name Comments Diabetes Father Heart Problems Father CAD Breast cancer Maternal Aunt Cancer Maternal Grandmother Bladder Hypertension Mother Osteoarthritis Mother Diabetes Sister Relation Name Status Comments Father Maternal Aunt Maternal Grandmother Mother Sister Social History Tobacco Use Types Packs/Day Years Used Date Smoking Tobacco: Former Smokeless Tobacco: Never Tobacco Cessation:Counseling Given: Not Answered Alcohol Use Standard Drinks/Week Comments No 0 (1 standard drink = 0.6 oz pur e alcohol) Social Connections Answer Date Recorded Connectedness 1 02/08/2024 Financial Resource Strain Answer Date R ecorded Financial Resource Strain 2 2023 Stress Answer Date Recorded Stress 1 02/08/2024 Physical Activity Answer Date Recorded Physical Activity 0 10/17/2018 Food Insecurity Answer Date Recorded Food 1 02/08/2024 Transportation Needs Answer Date Record ed Transportation 1 02/08/2024 Housing Stability Answer Date Recorded Housing 1 02/08/2024 Safety and Environment Answer Date Rishabh rded Safety 0 06/24/2022 Utilities Answer Date Recorded Utilities 2 02/08/2024 Employment Answer Date Recorded Stress 0 06/24/2022 Comments No Sex and Gender Information Value Date Recorded Sex Assigned at Female 11/03/2017 8:26 AM PDT Legal Sex Female 8:24 AM PDT Gender Identity Female 11/03/2017 8:26 AM PDT Sexual Orientation Straight 11/03/2017 8: 26 AM PDT Last Filed Vital Signs Vital Sign Reading Time Taken Comments Blood Pressure 144/86 05/23/2024 2:40 PM EDT Pulse 87 05/23/2024 2:40 PM EDT Temperature 37.2 ??C (98.9 ??F) 05/23/2024 2:40 PM ED T Respiratory Rate 18 05/23/2024 2:40 PM EDT Oxygen Saturation 95% 02/08/2024 9:44 AM EST Inhaled Oxygen Concentration - - Weight 81.6 kg (180 lb) 05/23/2024 2:40 PM EDT Height 154.9 cm (5' 1 ) 04/03/2024 5:18 PM EST Body Mass Index 34.01 04/03/2024 5:18 PM EST Plan of Treatment Health Maintenance Due Date Last Done Comments Anxiety Screening [address] Colonography 11/24/2007 Colonoscopy 11/24/2007 Flexible Sigmoidoscopy 11/24/2007 Imm-Zoster, Recombinant (1 of 2) 2012 Imm-Pneumococcal (2 of 2 - PCV) 04/06/2019 04/06/2018 Medicare Annual Wellness Visit 06/25/2023 06/24/2022, 08/02/2020, 11/03/2017 FIT/gFOBT 08/04/2023 08/03/2022 [id number] ( season) 2023 Imm-DTaP/Tdap/Td (4 - Td or Tdap) 11/25/2023 11/24/2013, 11/04/2009, 11/04/2009 Alcohol and Drug Screen 02/23/2024 02/08/20 24, 06/24/2022, 06/24/2022, Additional history exists Depression Monitoring 05/08/2024 02/08/2024 , 06/24/2022, 06/19/2020, Additional history exists Imm-Influenza (#1) 2024 12/13/2018, 0 11/03/2017, 01/09/2016, Additional history exists Postponed from 10/24/2023 (Patient postponement) Breast Cancer Screening (Mammogram) 03/02/2025 03/02/2024, 03/02/2024, 07/06/2022, Additional history exists Tobacco Screening 05/24/2025 05/24/2024, 06/24/2022 Diabetes Screening 06/24/2025 06/24/2022, 0 08/06/2020, 08/06/2020, Additional history exists Lipid Screening 06/24/2025 06/24/2022, 0504/2021, 08/06/2020 Pap Smear 07/14/2025 07/14/2022 Colorectal Cancer Screening 08/03/2025 Fecal DNA 08/03/2025 08/03/2022 Cervical Cancer Screening 07/15/2027 Pap + HPV 07/15/2027 07/14/2022 Hepatitis C Screening Completed 08/06/2020, 018 HIV Screening Completed 06/24/2022, 07/04/2021 Cervical Ablation/Cold-Knife Conization Discontinued Cervical Cryotherapy Discontinued Colposcopy Discontinued Endometrial Biopsy Discontinued Excision/Leep Discontinued HPV Genotyping Discontinued Vaginal Pap Discontinued Vulvoscopy Discontinued Procedures Procedure Name Priority Date/Time Associated Diagnosis Comments REFERRAL FOR CARDIAC STRESS TEST Routine 05/19/2024 3:00 AM EDT Atypical chest pain REFERRAL FOR MAMMOGRAM Routine 03/02/2024 3:00 AM EST Low back pain, unspecified back pain laterality, unspecified chronicity, unspecified whether sciatica present COLOGUARD Routine 08/03/2022 3:00 AM EDT Routine adult health maintenance Encounter for colorectal cancer screening THINPREP PAP & HPV MRNA E6/E7 RFLX HPV 16,18/[address]/NG Routine 07/14/2022 9:23 AM EDT Encounter for Papanicolaou smear of cervix HIV 1/2 AG & AB W/RFLX (4TH GEN) Routine 06/24/2022 10:14 AM EDT Routine adult health maintenance COMPREHENSIVE METABOLIC PANEL Routine 06/24/2022 10:14 AM EDT Uncomplicated asthma, unspecified asthma severity, unspecified whether persistent Overweight Diabetes mellitus screening Hypertriglyceridemia Routine adult health maintenance Environmental allergies LIPID PANEL Routine 06/24/2022 10:14 AM EDT Routine adult health maintenance HEPATITIS C AB W/RFLX HCV RNA, QT, RT PCR Routine 08/06/2020 3:25 PM EDT Routine adult health maintenance from Last 3 Months or Most Recently Relevant to Health Maintenance Results * REFERRAL FOR CARDIAC STRESS TEST (05/19/2024 3:00 AM EDT) 05/19/2024 3:00 AM EDT us Partha MENDOZA REFERRAL CARD Final Result * REFERRAL FOR MAMMOGRAM (03/02/2024 3:00 AM EST) 03/02/2024 3:00 AM EST us Partha MENDOZA IMG RFL MAMMO Final Result * COLOGUARD (08/03/2022 3:00 AM EDT) Stool Stool specimen / Unknown 08/03/2022 3:00 AM EDT us Partha MENDOZA LAB - NO BLOOD DRAW Edited Res ult - Final [employer] [address] [place] [address], [address] [facility] [id number] [place] [id number], * THINPREP PAP & HPV MRNA E6/E7 RFLX HPV 16,18/[address]/NG (07/14/2022 9:23 AM EDT) CHLAMYDIA TRACHOMATIS RNA, TMA NOT DETECTED NOT DETECTED [employer] NEISSERIA GONORRHOEAE RNA, TMA NOT DETECTED NOT DETECTED [employer] COMMENT [employer] CLINICAL INFORMATION See Note [employer] Comment:POSTMENOPAUSAL~ROUTI NE EXAM LMP See Note [employer] Comment:NONE GIVEN PREV. PAP See Note [employer] Comment:NONE GIVEN PREV. BX See Note [employer] Comment:NONE GIVEN SOURCE See Note [employer] Comment:Cervix STATEMENT OF ADEQUACY See Note [employer] Comment: Satisfactory for evaluation. Endocervical/transformation zone component present. INTERPRETATION/RESU LT See Note [employer] Comment:Negative for intraep ithelial lesion or malignancy. TABLE GAMES SHIFT MANAGER See Note [employer] Comment: KR, CT(ASCP) CT screening location: [address] ??[address] REVIEW TABLE GAMES SHIFT MANAGER See Note [employer] Comment: CMG, CT(ASCP) CT screening location: [address] ??[address] COMMENT [employer] HPV MRNA E6/E7 Not Detected Not Detected [employer] [facility] Comment: Methodology: Fraud Analyst-Mediated Amplification This assay detects E6/E7 viral messenger RNA (mRNA) from 14 high-risk HPV types (16,18,31,33,35,39,45,51,52,56,58,59,66,68). Cervical sources are required for HPV testing. If a vaginal source from a patient who has had a total hysterectomy with removal of cervix was submitted, please contact the testing laboratory for alternative testing options. For additional information, please refer to http://ConnectFu.Workspace/faq/ZYV842s8 (This link if provided for information/ educational purposes only.) Swab Cervix uteri structure / Unknown 07/14/2022 9:23 AM EDT 07/15/2022 1:04 PM EDT Narrative [facility] - 07/21/2022 2:57 PM EDT EXPLANATORY NOTE: The Pap is a screening test for cervical cancer. It is not a diagnostic test and is subject to false negative and false positive results. It is most reliable when a satisfactory sample, regularly obtained, is submitted with relevant clinical findings and history, and when the Pap result is evaluated along with historic and current clinical information. The analytical performance characteristics of this assay, when used to test SurePath(TM) specimens have been determined by [employer]. The modifications have not been cleared or approved by the FDA. This assay has been validated pursuant to the CLIA regulations and is used for clinical purposes. For additional information, please refer to https://education.Workspace/faq/FHW820 (This link is being provided for information/ educational purposes only.) Partha MENDOZA LAB - NO BLOOD DRAW Final Resu lt [employer] [address] [address], [employer] [address] [address] * HIV 1/2 AG & AB W/RFLX (4TH GEN) (06/24/2022 10:14 AM EDT) HIV AG/AB, 4TH GEN NON-REAC TIVE NON-REAC TIVE [employer] Comment: HIV-1 antigen and HIV-1/HIV-2 antibodies were not detected. There is no laboratory evidence of HIV infection. PLEASE NOTE: This information has been disclosed to you from records whose confidentiality may be protected by state law. ??If your state requires such protection, then the state law prohibits you from making any further disclosure of the information without the specific written consent of the person to whom it pertains, or as otherwise permitted by law. A general authorization for the release of medical or other information is NOT sufficient for this purpose. ?? For additional information please refer to http://education.Workspace/faq/KZU439 (This link is being provided for informational/ educational purposes only.) The performance of this assay has not been clinically validated in patients less than 2 years old. Blood Blood / Unknown 06/24/2022 1 0:14 AM EDT 06/24/2022 10:14 AM EDT Partha MENDOZA LAB - BLOOD DRAW Final Result [employer] [address] [address], [employer] [address] [address] * (ABNORMAL) LIPID PANEL (06/24/2022 10:14 AM EDT) Pathologist [facility] CHOLESTEROL, TOTAL 240(H) <200 mg/dL [employer] [facility] HDL CHOLESTEROL 59 > OR = 50 mg/dL [employer] TRIGLYCERIDES 225(H) <150 mg/dL [employer] Comment: If a non-fasting specimen was collected, consider repeat triglyceride testing on a fasting specimen if clinically indicated. [place] et al. J. of Clin. Lipidol. 2015;9:129-169. LDL-CHOLESTEROL 145(H) 99 mg/dL (calc) [employer] Comment: Reference range: <100 Desirable range <100 mg/dL for primary prevention; ?? <70 mg/dL for patients with CHD or diabetic patients with > or = 2 CHD risk factors. LDL-C is now calculated using the Idogo-Regan calculation, which is a validated novel method providing better accuracy than the Friedewald equation in the estimation of LDL-C. Diogo ALONSO et al. ALEXANDRE. 2013;310(19): 8671-8894 (http://education.Ynvisible/faq/TSL357) CHOL/HDLC RATIO 4.1 <5.0 (calc) [employer] NON-HDL CHOLESTEROL 181(H) <130 mg/dL (calc) [employer] Comment: For patients with diabetes plus 1 major ASCVD risk factor, treating to a non-HDL-C goal of <100 mg/dL (LDL-C of <70 mg/dL) is considered a therapeutic option. Blood Blood / Unknown 06/24/2022 1 0:14 AM EDT 06/24/2022 10:14 AM EDT Partha MENDOZA LAB - BLOOD DRAW Final Result [employer] [address] [address], [employer] [address] [place] [address] * COMPREHENSIVE METABOLIC PANEL (06/24/2022 10:14 AM EDT) [facility] GLUCOSE 99 65 - 99 mg/dL [employer] Comment: ?Fasting reference interval UREA NITROGEN (BUN) 17 7 - 25 mg/dL [employer] CREATININE (blood) 0.67 0.50 - 1.03 mg/dL [employer] EGFR 101 > OR = 60 mL/min/1 .73m2 [employer] Comment: The eGFR is based on the CKD-EPI 2020 equation. To calculate the new eGFR from a previous Creatinine or Cystatin C result, go to https://www.kidney.org/professionals/ kdoqi/gfr%5Fcalculator BUN/CREATININE RATIO NOT APPLICABLE 6 - 22 [employer] SODIUM 140 135 - 146 mmol/L [employer] POTASSIUM 4.1 3.5 - 5.3 mmol/L [employer] CHLORIDE 104 98 - 110 mmol/L [employer] CARBON DIOXIDE 27 20 - 32 mmol/L [employer] CALCIUM 9.7 8.6 - 10.4 mg/dL [employer] [facility] PROTEIN, TOTAL 6.9 6.1 - 8.1 g/dL [employer] [facility] ALBUMIN 4.4 3.6 - 5.1 g/dL [employer] [place] [facility] GLOBULIN 2.5 1.9 - 3.7 g/dL (calc) [employer] [facility] ALBUMIN/GLOBUL IN RATIO 1.8 1.0 - 2.5 (calc) [employer] [place] [facility] BILIRUBIN, TOTAL 0.5 0.2 - 1.2 mg/dL [employer] [facility] ALKALINE PHOSPHATASE 64 37 - 153 U/L [employer] [facility] AST 15 10 - 35 U/L [employer] [facility] ALT 16 6 - 29 U/L [employer] [facility] Blood Blood / Unknown 06/24/2022 1 0:14 AM EDT 06/24/2022 10:14 AM EDT Partha MENDOZA LAB - BLOOD DRAW Edited Result - Final [employer] [address] [address], [employer] [address] [address] * HEPATITIS C AB W/RFLX HCV RNA, QT, RT PCR (08/06/2020 3:25 PM EDT) HEPATITIS C ANTIBODY NON-REACT DEMARCUS NON-REACT DEMARCUS [employer] [facility] SIGNAL TO CUT-OFF 0.01 <1.00 [employer] [facility] Comment: HCV antibody was non-reactive. There is no laboratory evidence of HCV infection. In most cases, no further action is required. However, if recent HCV exposure is suspected, a test for HCV RNA (test code 79814) is suggested. For additional information please refer to http://education.Workspace/faq/WDP33o2 (This link is being provided for informational/ educational purposes only.) Blood Blood / Unknown 08/06/2020 3 :25 PM EDT 08/06/2020 3:25 PM EDT Narrative [employer] - 08/07/2020 2:03 AM EDT FASTING:NO Partha MENDOZA LAB - BLOOD DRAW Edited Result - Final [facility] [address] [address], [facility] [address] [address] from Last 3 Months or Most Recently Relevant to Health Maintenance Insurance [facility] Member Subscriber Plan / Payer (Ef fective 2020-Present) Name:Elina Muhammad Relation to Subscriber:Self Name:Elina Muhammad Payer ID:[id number] Group ID:Not on file Type:Indemnity Address: [place] [address] [address] [id number] Care Teams Excavating Supervisor Relationship Specialty Start Date End Date Partha Graham PA [address] [place] [address] PCP - General Internal Medicine 09/30/17
--- OUTSIDE RECORDS SUMMARY | 2024-05-25 11:10 | XMS_ITS | Encounter Summary ---
Author Organization [facility] Address [address] [place] [address] Care Team Providers Care Feltmaker And Weigher Name Role Phone Partha Graham Primary Care Provider [phone] Reason for Referral * Otolaryngology (Urgent) - Pending Review Specialty Diagnoses / Procedures Referred By Nancy cordoba Referred To Contact Diagnoses Chronic left ear pain Yazmin Lubin FNP [address] [place] [phone] Phone: tel: fax: [facility] [address] [place] [address] Phone: tel: Referral ID Status Reason Start Date Expiration Date Visits Requested Visits Authorized [id number] Pending Review Specialty Services Required 05/23/2024 05/23/2025 1 1 Comments The patient with complains of recurrent ear pain - please evalatate and treat - Reason for Visit * Reason Comments Ear Pain Dizziness Encounter Details Date Type Department Care Team ([facility] st Contact Info) Description 05/23/2024 3:00 PM EDT Office Visit [facility] [address] [place] [address] Yazmin Lubin FNP [address] [place] [phone] Chronic left ear pain (Primary Dx); Acute effusion of left ear; Vertigo Social History Tobacco Use Types Packs/Day Years Used Date Smoking Tobacco: Former Smokeless Tobacco: Never Alcohol Use Standard Drinks/Week [...] Orientation Straight 11/03/2017 8: 26 AM PDT documented as of this encounter Last Filed Vital Signs Vital Sign Reading Time Taken Comments Blood Pressure 144/86 05/23/2024 2:40 PM EDT Pulse 87 05/23/2024 2:40 PM EDT Temperature 37.2 ??C (98.9 ??F) 05/23/2024 2:40 PM ED T Respiratory Rate 18 05/23/2024 2:40 PM EDT Oxygen Saturation - - Inhaled Oxygen Concentration - - Weight 81.6 kg (180 lb) 05/23/2024 2:40 PM EDT Height - - Body Mass Index 34.01 04/03/2024 5:18 PM EST documented in this encounter Progress Notes * BALJEET Comer - 05/23/2024 3:17 PM EDT Subjective Vertigo and ongoing left ear pain Elina Muhammad is a 63-year-old female who is here for the above reason. The patient also reports a history of vertigo, and in the past, symptoms lasted a few days. The onset of current symptoms was 9 days ago and is not any better. The patient also reports chronic occasional left ear pain; she reports a history of environmental allergies. Dizziness This is a new problem. The current episode started in the past 7 days. The problem occurs daily. The problem has been waxing and waning. Pertinent negatives include no abdominal pain, anorexia, arthralgias, change in bowel habit, chest pain, chills, congestion, coughing, diaphoresis, fatigue, fever, headaches, joint swelling, myalgias, nausea, neck pain, numbness, rash, sore throat, swollen glands, urinary symptoms, vertigo, visual change, vomiting or weakness. Exacerbated by: movement and chnage in postions. She has tried rest for the symptoms. The treatment provided no relief. Patient Active Problem List Diagnosis ??? Asthma (HHS-HCC) ??? Carpal tunnel syndrome ??? Environmental allergies ??? Family history of ovarian cancer ??? GERD (gastroesophageal reflux disease) ??? Lichen sclerosus ??? Overweight ??? Seasonal allergies ??? Osteoarthritis of hand ??? Constipation ??? Class 2 obesity due to excess calories without serious comorbidity with body mass index (BMI) of 35.0 to 35.9 in adult ??? TAMMI (obstructive sleep apnea) ??? Tendinitis of finger of left hand ??? Uterine leiomyoma ??? PERICO positive ??? Primary insomnia ??? Chronic tension-type headache, not intractable ??? Diabetes mellitus screening ??? Seborrheic dermatitis, unspecified ??? Depression ??? Helicobacter pylori infection ??? Financial difficulties PLAN:,h Current Outpatient Medications Medication Sig Dispense Refill ??? meclizine (ANTIVERT) 25 mg tablet Take 1 Tablet by mouth 2 (two) times daily as needed for dizziness for up to 30 days 30 Tablet 0 ??? pseudoephedrine HCl (SUDAFED) 120 mg 12 hr tablet Take 120 mg by mouth 2 (two) times daily for 5 days 10 Tablet 0 ??? naproxen (NAPROSYN) 500 mg tablet Take 1 Tablet by mouth 2 (two) times daily as needed for other reason (pain) 60 Tablet 1 ??? acetaminophen (TYLENOL) 325 mg tablet Take 1 Tablet by mouth 3 (three) times daily as needed for pain or fever 120 Tablet 1 ??? albuterol HFA 90 mcg/actuation inhaler Inhale 2 Puffs into the lungs every 4 to 6 (four to six)hours as needed for shortness of breath or wheezing 8.5 g 1 ? ? blood pressure monitor Blood pressure goal < 140/90 1 Kit 0 ??? loratadine (CLARITIN) 10 mg tablet TAKE 1 TABLET BY MOUTH EVERY DAY 90 Tablet 1 ??? azithromycin (ZITHROMAX) 250 mg tablet Take 2 tabs by mouth today, followed by 1 tab by mouth for four more days. 6 Tablet 0 ??? ipratropium-albuteroL (DUONEB) 0.5 mg-3 mg(2.5 mg base)/3 mL nebulizer solution Take 3 mL by nebulization 4 (four) times daily 90 mL 2 ??? nebulizer accessories Dispense one nebulizer for patient with asthma. 1 Each 0 ??? nebulizer and compressor Dispense one nebulizer for patient with asthma. 1 Each 0 ??? nebulizers Dispense one nebulizer for patient with asthma. 1 Each 0 ??? ibuprofen 600 mg tablet Take 1 Tablet by mouth 4 (four) times daily as needed for pain 90 Tablet 1 ??? pantoprazole (PROTONIX) 20 mg EC tablet TAKE 1 TABLET BY MOUTH TWICE DAILY FOR 14 DAYS ??? EPINEPHrine (EPIPEN) 0.3 mg/0.3 mL pen injector INJECT 1 PEN IN THE MUSCLE ONE TIME DIRECTED ??? propylene glycol-glycerin 1-0.3 % drop 15 mL No current facility-administered medications for this visit. Review of Systems Constitutional: Negative for chills, diaphoresis, fatigue and fever. HENT: Negative for congestion and sore throat. Respiratory: Negative for cough. Cardiovascular: Negative for chest pain. Gastrointestinal: Negative for abdominal pain, anorexia, change in bowel habit, nausea and vomiting. Musculoskeletal: Negative for arthralgias, joint swelling, myalgias and neck pain. Skin: Negative for rash. Neurological: Positive for dizziness. Negative for vertigo, weakness, numbness and headaches. Objective Vitals: 05/23/24 1440 BP: (!) 144/86 Pulse: 87 Resp: 18 Temp: 98.9 ??F (37.2 ??C) TempSrc: Oral Weight: 180 lb (81.6 kg) Estimated body mass index is 34.01 kg/m?? as calculated from the following: Height as of 04/03/24: 5' 1 (1.549 m). Weight as of this encounter: 180 lb (81.6 kg). Facility age limit for growth %leonidas is 20 years. Physical Exam Constitutional: Appearance: Normal appearance. HENT: Head: Normocephalic and atraumatic. Right Ear: Tympanic membrane, ear canal and external ear normal. Left Ear: No decreased hearing noted. No laceration, drainage, swelling or tenderness. A middle eareffusion is present. There is no impacted cerumen. No foreign body. No mastoid tenderness. No PE tube. No hemotympanum. Tympanic membrane is not injected, scarred, perforated, erythematous, retractedor bulging. Tympanic membrane has normal mobility. Cardiovascular: Rate and Rhythm: Normal rate. Pulses: Normal pulses. Pulmonary: Effort: Pulmonary effort is normal. Musculoskeletal: Cervical back: Normal range of motion. Neurological: Mental Status: She is alert and oriented to person, place, and time. Psychiatric: Attention and Perception: Attention normal. Mood and Affect: Mood normal. Speech: Speech normal. Behavior: Behavior normal. Thought Content: Thought content normal. Cognition and Memory: Cognition normal. Judgment: Judgment normal. Assessment and Plan 1. Chronic left ear pain (Primary) - REFERRAL TO EAR, NOSE AND THROAT 2. Acute effusion of left ear - pseudoephedrine HCl (SUDAFED) 120 mg 12 hr tablet; Take 120 mg by mouth 2 (two) times daily for 5days Dispense: 10 Tablet; Refill: 0 3. Vertigo - meclizine (ANTIVERT) 25 mg tablet; Take 1 Tablet by mouth 2 (two) times daily as needed for dizziness for up to 30 days Dispense: 30 Tablet; Refill: 0 RTC as scheduled and prn or if symptoms worsen documented in this encounter Miscellaneous Notes * Isidro IRIZARRY - BALJEET Comer - 05/23/2024 3:29 PM EDT Images from the original note were not included. [id number] Vertigo (Unknown Cause) Vertigo is a false feeling of motion. You aren't moving, but it feels as if you are. This feeling can be caused by problems in the inner ear. In addition to helping with hearing, the inner ear is part of the balance center of your body. When something affects the balance center, you can have vertigo. Often it feels as if you or the room are spinning. A vertigo attack may cause sudden nausea, vomiting, and heavy sweating. Severe vertigo causes a loss of balance and can make you fall. During vertigo, small head movements and changes in body position will often make the symptoms worse. You may also have ringing in the ears (tinnitus). An episode of vertigo may last seconds, minutes, or hours. Once you are over the first episode, it may never come back. But symptoms may return off and on. Often your provider will have you do certain head and body movements in the office to treat your vertigo. The cause of your vertigo is not yet known. Possible causes of vertigo include: ?? Inner ear inflammation ?? Disease of the nerves to the inner ear ?? Movement of calcium particles in the inner ear ?? Poor blood flow to the balance centers of the brain ?? Migraine headaches ?? In older adults, the use of more than one medicine along with some health conditions Home care ?? If symptoms are severe, rest quietly in bed. Change positions very slowly. There is often one position that will feel best. This may be lying on one side or lying on your back with your head slightly raised on pillows. Until you have no symptoms, you are at a higher risk of falling. Let someone help you when you get up. Get rid of home hazards such as loose electrical cords, clutter, toys on the floor, and throw rugs. Don?t walk in unfamiliar areas that are not lighted. Use night-lights in bathrooms and blake. ?? Don't drive a car or work with dangerous machinery until symptoms have been gone for at least 1 week. ?? Take medicine as prescribed to ease your symptoms. Unless another medicine was prescribed for symptoms of nausea, vomiting, and dizziness, you may use yriv-zli-citanmf motion sickness pills. If you have any questions about an ajsu-hpa-assjiwj medicine or its side effects, talk with your healthcare provider or pharmacist before taking it. Let your pharmacist know all of the other medicines you are taking and if you have any allergies to medicines. Follow-up care Follow up with your healthcare provider as directed. If you are referred to a specialist or for testing, make the appointment right away. When to get medical advice Call your healthcare provider if you have any of the following: ?? Fever of 100.4??F (38??C) or higher, or as directed by your healthcare provider ?? Vertigo gets worse or is not controlled by prescribed medicine ?? Repeated vomiting that doesn't stop after taking prescribed medicine ?? Severe headache ?? Confusion ?? Trouble with vision Call 911 Call 911 if any of these occur: ?? Feeling faint (loss of consciousness) ?? Seizure ?? Weakness of an arm, leg, or one side of the face ?? Trouble with speech Last Reviewed Date: 2021 00:00:00 ?? [id number] [employer]. All rights reserved. This information is not intended as a substitute for professional medical care. Always follow your healthcare professional's instructions. Y IRIZARRY - BALJEET Comer - 05/23/2024 3:29 PM EDT Images from the original note were not included. [id number] Dizziness (Vertigo) and Balance Problems: Diagnostic Tests An shampoo technician specializes in problems of the ear, nose, and throat. This healthcare provider is also called an ENT because of their expertise in the ears, nose, and throat. If you are having vertigo or balance problems, your primary care provider may send you to an ENT to help with a diagnosis. They'll give you an exam and go over your past health. You may need certain tests to help diagnose your problem. Hearing testing In most cases, you'll be sent for hearing testing. This is because the nerve that sends balance signals also sends hearing signals. A problem that affects balance can also affect hearing. Other tests Your ENT may advise other tests. These tests don't cause pain, but they may make you dizzy in some cases. ?? Medicine Park-Hallpike maneuver. Your healthcare provider will gently turn your head in different angles and watch how your eyes move. This is done to determine whether you have spinning or a false impression of motion. This is a simple test your healthcare provider can do in the office to see if dizziness is caused by vertigo. ?? MRI scan. This test makes detailed images of the ear or head. A magnetic field and contrast medium are used to make the image. ?? Electronystagmography (ENG). This test records eye movement. Small electrodes are put on the skin around your eyes. Then your ear is filled with warm or cold water. This normally causes the eyes to move rapidly in one direction (nystagmus). ?? Rotation tests. Rotational chair testing provides additional information to audiologists regarding the origin of vertigo whether it is peripheral or central. For this test you sit in a chair that revolves slowly and your eye movements are recorded by special goggles that you wear. Audiologists examine your eye movements to see how they relate to your inner ear health. ?? Posturography. This tests your standing balance under different conditions. You'll stand on a platform. It measures shifts in your body weight. ?? Electrocochleography (ECoG). This test measures the fluid pressure in the inner ear. An abnormalECoG may mean you have Meniere's disease or other health problems. ?? Vestibular evoked myogenic potentials (VEMPs). This test may be used if your ENT suspects a rarecondition like superior semicircular canal dehiscence. This is a hole in the bone that covers the part of the inner ear where fluid circulates and regulates balance. For this test, electrodes are placed on your neck. You hear clicks in your ear. ?? Blood pressure and heart rate test. Your blood pressure can be taken both while you're sitting and after you stand for 2 to 3 minutes to see if there are any noticeable drops. Your heart rate may be tracked while you are upright. This is done to help determine whether your symptoms are related to a fall in blood pressure or a heart issue. This is a called syncope (fainting) or pre-syncope. It is distinct from vertigo with different causes. Last Reviewed Date: 2023 00:00:00 ?? [id number] [employer]. All rights reserved. This information is not intended as a substitute for professional medical care. Always follow your healthcare professional's instructions. Y IRIZARRY - BALJEET Comer - 05/23/2024 3:28 PM EDT Images from the original note were not included. [id number] Managing Dizziness (Vertigo) With Medicines Although medicines can't cure all of your problems, they can help control your symptoms. Your health care provider may prescribe medicines for a few weeks and then taper them off. Always take your medicine as prescribed. Never share your medicine with others. When to contact your health care provider Contact your health care provider right away if you have side effects from your medicines. Before using a new qtyk-jnx-vwxpldf medicine, check with your provider or the pharmacist to be sure there won't be an interaction with other medicines you are taking. How medicines can help ?? Treat infection or inflammation. If you have an infection caused by bacteria, your health care provider can prescribe antibiotics. ?? Limit conflicting balance signals. These medicines are often in pill form. ?? Ease nausea. Suppositories, pills, or shots can reduce vomiting. ?? Reduce pressure in the canals. Diuretics can be used to treat M??ni??re's disease. These medicines help your body get rid of extra fluid. ?? Ease other symptoms. Other medicines can help ease depression and anxiety caused by living with dizziness or fainting. Last Reviewed Date: 2024 00:00:00 ?? [id number] [employer]. All rights reserved. This information is not intended as a substitute for professional medical care. Always follow your healthcare professional's instructions. * Patient Instructions - BALJEET Comer - 05/23/2024 3:28 PM EDT If you are not able to keep your appointment please call 24-48 hours before your appointment to cancel or reschedule. documented in this encounter Plan of Treatment Scheduled Referrals Name Type Priority Associated Diagnoses Orde r Schedule REFERRAL TO EAR, NOSE AND THROAT Referral Urgent Chronic left ear pain Ordered: 05/23/2024 documented as of this encounter Visit Diagnoses Diagnosis Chronic left ear pain- Primary Otalgia, unspecified Acute effusion of left ear Vertigo Dizziness and giddiness documented in this encounter Additional Health Concerns Assessment Noted Time PHQ-9 Depression Total Score: 2 02/08/20 24 9:43 AM PST documented as of this encounter Care Teams Feltmaker And Weigher Relationship Specialty Start Date End Date Partha Graham PA [address] [place] [address] PCP - General Internal Medicine 09/30/17 documented as of this encounter
== END 2024-05-25 11:24 | disposition home or self-care (01) ==
LOC: HO.RHES 10:17
PROVIDERS: Visit Provider Internal Medicine Rheumatology
DX: M25.512 Pain in left shoulder (principal); M15.4 Erosive (osteo)arthritis; M17.0 Bilateral primary osteoarthritis of knee
CPT/HCPCS: 99214; G2211

== ENCOUNTER → 2024-05-25 13:04 | Outpatient (BNV) | payer OTHER, SELFPAY | PROVIDERS: PCP Physician Assistant; Visit Provider Radiology Diagnostic Radiology | DX: M19.012 Primary osteoarthritis, left shoulder (principal) | CPT/HCPCS: 73030 ==

== ENCOUNTER 2024-09-05 09:40 | Outpatient (AMB) | payer OTHER, SELFPAY ==
--- NOTE | 2024-09-05 10:00 | A.OFFVIS_ITS ---
Vital Signs 09/05/24 10:01 Height 5 ft 1 in BP 130/80 Blood Pressure Location Rt brachial Position Sitting Pulse 88 Pulse Source Pulse Oximeter Pulse Oximetry (%) 98 Oxygen Delivery Method Room Air Intake Visit Reasons: 3 Months Allergies celecoxib (From Celebrex) Allergy (Intermediate, Verified 09/05/24 10:21) Hives HPI HPI 3 Months: Details: PT left shoulder is scheduled in september. Left shoulder pain has improved. Wakes up with numb hands. EMG [facility] revealed b/l CTS per patient 7-8 years ago. She does not wear wrist braces at night. In the past she felt they were uncomfortable. She continues to have pain in her hands but it is more tolerable. Physical Exam Vital Signs: Last Vital Signs Pulse 88 09/05/24 10:01 BP 130/80 09/05/24 10:01 Pulse Ox 98 09/05/24 10:01 Oxygen Delivery Method Room Air 09/05/24 10:01 Const Other: General: Comfortable CVS: RRR Respiratory: clear to auscultation bilaterally. Good respiratory effort Skin: No lesions seen MSK: Tender to palpate left anterior shoulder. Normal range of motion of shoulders. She has pain in left shoulder with active range of motion. Tender to palpate right 3rd and 4th PIP with synovitis. Judy's nodes and Heberden's nodes present. 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 Nontender knees. Normal range of motion of knees. Phalen's test positive right hand. Negative Tinel's test. Results Reviewed Results Reviewed: X-ray left shoulder May 2024 FINDINGS: Four views of the left shoulder are submitted. Osseous mineralization is normal. There is no fracture or dislocation. The glenohumeral joint is maintained. There is moderate osteoarthritis of the AC joint, with joint space narrowing and osteophyte formation. A soft tissue calcification adjacent to the greater tuberosity of the humerus is likely related to the rotator cuff. XR/XR shoulder LT min 2V IMPRESSION: Moderate osteoarthritis of the AC joint. Probable rotator cuff calcification. Assessment & Plan Assessment & Plan (1) Erosive osteoarthritis of hands, bilateral: Comment: Pain is uncontrolled. She has chronic synovitis right 3rd and 4th PIP previously failed intra-articular cortisone injection but had benefit with short course of prednisone x2. She would be willing to try brand Plaquenil. Rheumatology history: Meloxicam ineffective. Chronic right 4th PIP synovitis failed intra-articular cortisone injection but responsive to low-dose prednisone course. Naproxen PRN helpful. HCQ caused reaction possible hair loss 12/2018. Code(s): M15.4 - Erosive (osteo)arthritis Category: Medical Plan: OT ordered Avoid naproxen when on prednisone Return to clinic in 3 months (2) Left shoulder pain: Comment: Likely due to rotator cuff tendinopathy/calcific tendonitis as noted on x-ray 05/2024. Code(s): M25.512 - Pain in left shoulder Category: Medical Qualifiers: Chronicity: chronic Qualified Code(s): M25.512 - Pain in left shoulder; G89.29 - Other chronic pain Plan: PT ordered Continue naproxen 375 mg prn pain prescribed by PCP Return to clinic in 3 months (3) Osteoarthritis of knees, bilateral: Comment: Pain is controlled with last cortisone injections 2023. Code(s): M17.0 - Bilateral primary osteoarthritis of knee Category: Medical Qualifiers: Osteoarthritis type: primary Qualified Code(s): M17.0 - Bilateral primary osteoarthritis of knee Plan: Monitor clinically Return to clinic in 3 months (4) Bilateral carpal tunnel syndrome: Comment: Symptomatic. She was diagnosed with bilateral carpal tunnel syndrome on EMG study 7-8 years ago. Previously were wrist braces that were uncomfortable. We discussed conservative management. She is willing to try wrist braces again. Code(s): G56.03 - Carpal tunnel syndrome, bilateral upper limbs Category: Medical Plan: Bilateral cock-up wrist braces prescribed If symptoms do not improve with wearing wrist braces at night, I will order EMG next visit Return to clinic in 3 months Orders: Orders OT Evaluation and Treatment Today M15.4 - Erosive (osteo)arthritis Medications: New arm brace (Wrist Brace) As directed. Bilateral cockup wrist braces Dx: carpal tunnel sydrome 2 ea 0RF Coding Level of Care Code Est Pt Level 4 (39219) Complex EM visit Add On G2211 Diagnoses Erosive osteoarthritis of hands, bilateral M15.4 Chronic left shoulder pain M25.512; G89.29 Chronicity: chronic Primary osteoarthritis of both knees M17.0 Osteoarthritis type: primary Bilateral carpal tunnel syndrome G56.03
[2024-09-05 10:01] VITALS: BP 130/80; PULSE 88; O2SAT 98
--- OUTSIDE RECORDS SUMMARY | 2024-09-05 10:22 | XMS_ITS | Data Portability ---
Author Organization [facility] - [facility], Allergy Address [address] [place] [phone] Assessment Encounter Date Assessment Date Assessment LastModified by Organization Details LastModified Time 07/24/2024 07/24/2024 63-year-old female with a history of bruxism and sleep apnea presents today for constellation of ear symptoms including otalgia, room spinning dizziness (not active). She has been seen for similar symptoms in the past, most recently in 2020. She denies any headaches. Ear exam is normal. Audiometric testing shows a mild symmetric high-frequency loss. There is some crepitation over the TMJ. Flexible laryngoscopy to evaluate for referred source of the otalgia was negative. Regarding the otalgia, she does have some crepitation over the TMJ. She does clench her teeth. She does have not adequately treated sleep apnea which is a risk factor for bruxism. I expect that the ear pain is related to the jaw. We reviewed jaw joint precautions. Regarding the dizziness, a presentation of room spinning vertigo lasting for 2-1/2 months is unusual. She had previous similar symptoms attributable to vestibular neuritis but that will usually last for a couple weeks. I have recommended MRI to evaluate for any retrocochlear lesion. [email or web address] Not available 07/26/2024 09:33:17 Plan of Treatment Reminders Order Date Submit Date Provider Last Modified By Organization Details Last Modified Time Details Appointments None recorded. Lab None recorded. Referral None recorded. Procedures None recorded. Surgeries None recorded. Imaging MRI, brain + internal auditory canal, w/wo contrast 2024 025 [facility] Mri Department, [address] [place] [address], [address], 12:07:17 Medication Orders None recorded. Patient TargetsNo targets recorded. Patient InstructionsNo instructions recorded. Reason for Referral None Reported. Results Created Date Observation Date Name Description Value Unit Range Abnormal Flag Note LastModifiedBy Organization Detail LastModifiedTime 07/26/19 audio gram No observ ation record ed. BARCODE Not Available 2024 11:28:52 08/13/19 25 08/11/2024 MR brain wo and W contr ast See Note [facility] , a member of [employer] [facility] t Name: RON MUHAMMAD Date of : 1960 Reason for Exam: dizzin ess Exam Date: 2024 [id number] EST Report Status : Final Orderi ng Dane er: KATTY SMITH PCP: TERESA NO IS PROCED URE: Contra st-enh anced MRI of the brain. HISTOR Y: dizzin ess. TECHNI QUE: Multip lanar multis equenc e MRI of the brain with and withou t intrav enous contra st. IV CONTRA ST DOSE: 15 mL Dotare m from a 15 mL vial with 0 mL discar ded. COMPAR LAURA: None. FINDIN GS: BRAIN: No diffus ion abnorm ality. No mass or extra- axial fluid collec tion. No hydroc ephalu s. The major intrac ranial flow voids are preser daniella. Age commen surate ventri cles and sulci. No abnorm al enhanc ement. Partia lly empty sella. There are a few nonspe cific T2 hyperi ntensi ties in the fronta l white matter , left greate r than right, most likely sequel a of mild chroni c microv ascula r ischem ic diseas e in a patien t of this age. ORBITS : Normal . SINUSE S/MAST OIDS: The right fronta l sinus is not pneuma tized. CALVAR IUM: Normal . OTHER: The visual ized skull base soft tissue s are normal . Partia lly visibl e mild degene rative change s of the cervic al spine. IMPRES JÚNIOR: 1. No acute findin gs. 2. Partia lly empty sella. This is a relati vely common findin g which can be seen in asympt omatic patien ts, but has been associ ated with pseudo tumor cerebr i and requir es correl ation with the patien t's clinic al prestam lyon .. ------ -- FINAL REPORT ------ -- Dictat ed By: Jarvis Elkins Dictat ed Date: 2024 09:40 ET Assign ed Physic gayatri: Jarvis Elkins Review ed and Electr onical ly Signed By: Jarvis Elkins Signed Date: 2024 10:07 ET Workst ation ID: [facility] [id number] Transc ribed By: Self Edit Transc ribed Date: 2024 09:46 ET [email or web address] [facility] Dept [address] [place], [address], 08/31/2024 08:39:36 Result Notes None recorded. 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, unspecifi ed ear; Note: Date Diagnosed : 11/25/2015 4:52 PM (H83.09) Not Available [facility] 4 03:19:14 Abnormal auditory perceptio n 48536196 Active 2020 Other abnormal auditory perceptio ns, left ear; Note: Date Diagnosed : 11/27/2020 9:21 AM (H93.292) Not Available [facility] 4 03:19:14 Dizziness and giddiness 424710904 Active 2015 Dizziness and giddiness ; Note: Date Diagnosed : 11/25/2015 4:52 PM (R42) Not Available [facility] 4 03:19:14 Otalgia of left ear 8396392959 Active 2020 Otalgia, left ear; Note: Date Diagnosed : 11/27/2020 6:27 PM (H92.02) Not Available [facility] 4 03:19:14 Obstructi ve sleep apnea syndrome 32663928 Active 2024 KATTY ODONNELL MD [address] [facility],[place] [address], [place], [address] , [facility] 15:47:35 Problem Notes None recorded. Procedures Surgical History Date Name Laterality Status Provider Name and Address Organization Details Recorded Time 07/25/19 25 Fiberoptic Laryngoscopy (Comprehensive) completed KATTY ODONNELL MD [address] [facility],[place] [address], [place], [address], [facility] [place] 07/24/2024 15:45:35 07/25/19 25 Air & Speech Audio with Tymps - 82412, 42107 & 55272 completed JENNA RAMIRES [address] [facility],[place] [address], [place], [address], [facility] 07/24/2024 14:44:50 Imaging Results None recorded. Procedure Notes None recorded. Medical Equipment None Reported. Allergies Allergen ID Allergen Name Allergen Category Reaction Reaction Severity Criticality Documentation Date Start Date Code Code System Note Provider Name and Address Organization Details Recorded Time 313904 Celebrex medicatio n other Not available Not available 07/06/2023 96764 7 RxNorm React ion: Unkno wn; Not Available [facility] 01:21:00 Medications Name Sig Start Date Stop Date Status Note LastModified by Organization Details LastModified Time Refresh Tears 0.5 % eye drops INSTILL 1 DROP IN BOTH EYES TWICE DAILY active Not Available Not Available No t Available acetamino phen 325 mg tablet TAKE 1 TABLET BY MOUTH THREE TIMES DAILY NEEDED FOR PAIN OR FEVER active Not Available Not Available No t Available atorvasta tin 20 mg tablet 07/24 completed Medicati on ID: [id number] B rand Name: atorvast atjama larsen Method: E-Prescr ibed Sub s Allowed: subs OK Medic ationGen ericName : atorvast atin Not Available Not Available Not Available ipratropi um 0.5 mg-albute rol 3 mg (2.5 mg base)/3 mL nebulizat ion soln USE 3 ML VIA NEBULIZE R FOUR TIMES DAILY 07/24 completed Not Available Not Available Not Available prednison e 20 mg tablet 07/24 completed Medicati on ID: [id number] B rand Name: predniso ne Send Method: E-Prescr ibed Sub s Allowed: subs OK Speci al Instruct ion: TAKE 3 TABLETS BY MOUTH EVERY DAY X3DAYS 2 TABLETS BY MOUTH EVERY DAY X3DAYS THEN 1 TABLET BY MOUTH EVERY DAY X5DAYS M edicatio nGeneric Name: predniso ne Not Available Not Available Not Available acetamino phen 500 mg tablet 07/24 completed Medicati on ID: [id number] B rand Name: acetamin ophen Se nd Method: E-Prescr ibed Sub s Allowed: subs OK Speci al Instruct ion: TK 1 T PO Q 6 H PRF PAIN Med icationG enericNa me: acetamin ophen Not Available Not Available Not Available meclizine 25 mg tablet TAKE 1 TABLET BY MOUTH TWICE DAILY NEEDED FOR DIZZINES S 07/24 completed Not Available Not Available Not Available fluoromet holone 0.1 % eye drops,estee pension 07/24 completed Medicati on ID: [id number] B rand Name: fluorome tholone Send Method: E-Prescr ibed Sub s Allowed: subs OK Medic ationGen ericName : fluorome tholone Not Available Not Available Not Available losartan 25 mg tablet TAKE 1 TABLET BY MOUTH DAILY 07/24 completed Not Available Not Available Not Available omeprazol e 20 mg capsule,d elayed release 11/27 completed Medicati on ID: [id number] D uration Value: 30 Brand Name: omeprazo le Send Method: E-Prescr ibed Sub s Allowed: subs OK Speci al Instruct ion: TK 1 C PO D PRF REFLUX M edicatio nGeneric Name: omeprazo le Not Available Not Available Not Available gabapenti n 100 mg capsule 11/27 completed Medicati on ID: [id number] B rand Name: gabapent in Send Method: E-Prescr ibed Sub s Allowed: subs OK Medic ationGen ericName : gabapent in Not Available Not Available Not Available estradiol 0.01% (0.1 mg/gram) vaginal cream APPLY DIME SIZE AMOUNT TO VAGINA AND LABIA TWICE A WEEK AT BEDTIME 07/24 completed Not Available Not Available Not Available albuterol sulfate HFA 90 mcg/actua tion aerosol inhaler INHALE 2 PUFFS BY MOUTH EVERY 4 TO 6 HOURS NEEDED FOR SHORTNES S OF BREATH OR WHEEZING active Not Available Not Available No t Available fluticaso ne propionat e 50 mcg/actua tion nasal spray,estee meza 11/27 completed Medicati on ID: [id number] D uration Value: 30 Brand Name: fluticas one propiona te Send Method: E-Prescr ibed Sub s Allowed: subs OK Speci al Instruct ion: SHAKE LQ AND U 2 SPRAYS IEN D Medica tionGene ricName: fluticas one propiona te Not Available Not Available Not Available loratadin e 10 mg tablet TAKE 1 TABLET BY MOUTH EVERY DAY active Not Available Not Available No t Available naproxen 500 mg tablet TAKE 1 TABLET BY MOUTH TWICE DAILY WITH A MEAL active Not Available Not Available No t Available cyclospor ine 0.05 % eye drops in a dropperet te INSTILL 1 DROP IN BOTH EYES TWICE DAILY 07/24 completed Not Available Not Available Not Available nitrofura ntoin monohydra te/macroc rystals 100 mg capsule TAKE 1 CAPSULE BY MOUTH TWICE DAILY FOR 5 DAYS 07/24 completed Not Available Not Available Not Available Vitals Date Recorded Body height Body mass index (BMI) Body weight Provider Name and Address Organization Details Last Updated DateTime 07/24/2024 154.94 cm 34 kg/m2 45669.63 g Laquita Arboleda [facility] 07/24/2024 15:33:58 Social History None recorded. Functional Status None recorded. Mental Status None recorded. Family History Nothing Reported. Medical History Condition Response Arthritis Y Asthma Y Gynecological HistoryNo gynecological history recorded. Obstetrics History GPAL:G 0 P 0 0 0 0 Past Encounters Encounter ID Performer Location Encounter Start Date Encounter Closed Date Diagnosis/Indication Diagnosis SNOMED-CT Code Diagnosis ICD10 Code Diagnosis Note [id number] KATTY ODONNELL MD [facility] [address] [address] 07/24/2024 14:34:45 07/24/2024 15:52:28 Otalgia of left ear 0628091406 H92.02 Right Ear:Normal hearing through 4K Hz sloping to a mild SNHL with excellent speech discrimina tion.Type A tympanogra m.Left Ear:Normal hearing through 4K Hz sloping to a mild SNHL with excellent speech discrimina tion.Type A tympanogra m. Dizziness and giddiness 873617016 R42 Obstructiv e sleep apnea syndrome 06265847 G47.33 Health Concerns Section Related Observation LastModified by Organization Detai ls LastModified Time None Recorded Concern Status LastModified by Organization Details LastModified Time None Recorded Advance Directives Directive None Recorded Payers Insurance Date Sequence Insurance Name Policy Number Policy Giordano Covered Member ID Giordano Member ID Guarantor Name 07/24/2024 1 [facility] - DOS ON OR AFTER 2022 - MEDICARE ADVANTAGE [place] (MEDICARE REPLACEMENT/ADV ANTAGE - PPO) Ronstephany Pendletona [id number] Ron Muhammad Notes Date Note Type Note Provider Name and Address Organization Details Recorded Time 07/24/2024 text/html 63 yo F presents for evaluation of her earsleft ear pain, started with dizziness, thought maybe BPPV?feels cotton ball and fluiddizziness bettertook 2.5 months to get betterwent [facility], no mouthguardseveral environmental allergies on flonase and loratadine, albuterol as neededgets sinus infections, twice in past year no sore throatno dysphagia has TAMMI, does not always use CPAP Vision checked yearlyGood hydrationNo heart disease PV (2020) 60-year-old female presents today for evaluation of earache. She is had symptoms for years. Her symptoms comeand go. She previously had been to an urgent care where there was a question about the health of her ear drum. She was previously seen in this office in 2016 fordizziness consistent with resolving labyrinthitis. She denies that she still gets dizzy without vertigo, which is still feel like she is fluid inside her head. She does havesome seasonal allergies for which she takes Flonase loratadine. Her symptoms are worse in the spring of the fall, and she also reports that her ear aches are worsein the spring and fall.She reports that the ear ache feels deep inside, ranging from 5 to 8/10. She reports that she does clench her teeth she did not wear a mouthguard. She does use aCPAP for sleep apnea. KATTY ODONNELL MD [address] [place] [address], [place], [address], [facility] - [facility] 07/26/2024 09:35:03 OBGyn Episode No OBEpisode recorded.
== END 2024-09-05 11:02 | disposition home or self-care (01) ==
PROVIDERS: PCP Physician Assistant; Visit Provider Internal Medicine Rheumatology
DX: M15.4 Erosive (osteo)arthritis (principal); M25.512 Pain in left shoulder; G89.29 Other chronic pain; G56.03 Carpal tunnel syndrome, bilateral upper limbs
CPT/HCPCS: 99213; G2211

== ENCOUNTER → 2024-09-05 09:40 | Outpatient (BNVA) | payer OTHER, SELFPAY | PROVIDERS: PCP Physician Assistant; Visit Provider Internal Medicine Rheumatology | DX: M25.512 Pain in left shoulder (principal); G89.29 Other chronic pain; M17.0 Bilateral primary osteoarthritis of knee; G56.03 Carpal tunnel syndrome, bilateral upper limbs | CPT/HCPCS: 99212 ==

== ENCOUNTER 2024-10-24 09:54 | Outpatient (RCR) | payer OTHER, SELFPAY ==
--- NOTE | 2024-09-07 12:05 | MHC.OT.EP ---
[address] [phone] Occupational Therapy Plan of Care Patient Name: Elina Muhammad Date of Evaluation: 09/07/24 Diagnosis: Erosive OA of bilateral hands Pain Location: Right middle and ring finger DIP/PIP joints Current: 6/10 Worst: 9/10 Pain Score: 6 Pain Scale Used: Numeric (0 - 10) Aggravating Factors: Forceful grasp Alleviating Factors: Paraffin tx at home Assessment: Pt is a 63 y/o right hand dominant female referred to OT for erosive OA of bilateral hands. Pt does have history of bilateral CTS and has just been issued wrist cock-up splints for nighttime use. She has chronic synovitis right 3rd and 4th PIP previously failed intra-articular cortisone injection. She reports numbness in digits 1-3 consistent with CTS, pain in DIP/PIP joints R>L hand, and intermittent edema in digits. Quick DASH score of 68.% indicates moderate disability and difficulty performing functional tasks. Elina would benefit from skilled OT tx for symptom management and increased function. Frequency and Duration: The patient will be seen 2x/wk for 4 weeks Short Term Goals: Decrease pain in bilateral hands <3/10 IND with joint protection techniques IND with thermal modalities for pain mgt Assisted Goals: Pain free with ADL's/IADL's Improve gross grasp by 5# each Improve function as evidenced by Quick DASH score <40% IND with HEP Treatment Plan: Therapeutic Exercise Therapeutic Activity Home Exercise Program Patient Education Paraffin MHP Joint Mobilization Electronically Signed By: Laquita Talbert MS OTR/L Please Sign and return to therapist. Thank you once again for your referral.
== END 2024-10-24 10:39 | disposition home or self-care (01) ==
LOC: HO.OTS 09:54
PROVIDERS: Visit Provider Internal Medicine Rheumatology
DX: M15.4 Erosive (osteo)arthritis (principal)
CPT/HCPCS: 97035; 97110; 97140; 97165

== ENCOUNTER 2025-01-17 12:22 | Outpatient (AMB) | payer OTHER, SELFPAY ==
[2025-01-17 12:31] VITALS: BP 134/74; PULSE 81; O2SAT 97; BMI 33.2
--- NOTE | 2025-01-17 12:31 | MHC.OFFVIS ---
Vital Signs 01/17/25 12:31 Height 5 ft 1 in Weight 175 lb 14.862 oz BMI 33.2 BP 134/74 Blood Pressure Location Rt brachial Position Sitting Pulse 81 Pulse Source Pulse Oximeter Pulse Oximetry (%) 97 Oxygen Delivery Method Room Air Intake Visit Reasons: 3 Months Intake Note: Patients presents today for a Ra follow up. Patient would like to talk about her medications. Accompanied by: Self / Same As Patient Allergies celecoxib (From Celebrex) Allergy (Intermediate, Verified 01/17/25 12:37) Hives HPI HPI 3 Months: Details: MS 3 hours. She had an abnormal EKG in his being evaluated by Cardiology. She has an appointment for an echocardiogram in March. She will be following up with the computer recycling worker's next month. She continues to have hand pain and swelling. She did not start Plaquenil. She has not been compliant with wrist wearing her braces because they do not feel comfortable. She is not taking NSAIDs Physical Exam Vital Signs: Last Vital Signs Pulse 81 01/17/25 12:31 BP 134/74 01/17/25 12:31 Pulse Ox 97 01/17/25 12:31 Oxygen Delivery Method Room Air 01/17/25 12:31 BMI result Body Mass Index 33.2 Const Other: General: Comfortable CVS: RRR Respiratory: clear to auscultation bilaterally. Good respiratory effort Skin: No lesions seen MSK: Tender to palpate right 3rd and 4th PIP with synovitis. Judy's nodes and Heberden's nodes present. Normal range of motion of upper extremities and lower extremities. Assessment & Plan Assessment & Plan (1) Erosive osteoarthritis of hands, bilateral: Comment: Pain is uncontrolled. She has chronic synovitis right 3rd and 4th PIP previously failed intra-articular cortisone injection but had benefit with short course of prednisone x2. She is willing to try brand Plaquenil but has been undergoing cardiac evaluation due to an abnormal EKG. Patient is unable to inform me what the abnormality was on her EKG. I recommended that she ask her computer recycling worker when she sees him/her next month for clearance to start Plaquenil while she is being worked up. Rheumatology history: Meloxicam ineffective. Chronic right 4th PIP synovitis failed intra-articular cortisone injection but responsive to low-dose prednisone course. Naproxen PRN helpful. HCQ caused reaction possible hair loss 12/2018. She completed OT 10/2024. Code(s): M15.4 - Erosive (osteo)arthritis Category: Medical Plan: Medrol dose prescribed Continue OT exercises Return to clinic in 3 months (2) Bilateral carpal tunnel syndrome: Comment: Symptomatic. She was diagnosed with bilateral carpal tunnel syndrome on EMG study 7-8 years ago. Previously were wrist braces that were uncomfortable. She is also experiencing discomfort with her new wrist braces. Code(s): G56.03 - Carpal tunnel syndrome, bilateral upper limbs Category: Medical Plan: I have asked her to contact her medical supply store where she received her braces to see if they can refill them for her If symptoms do not improve with wearing wrist braces at night, I will order EMG next visit Return to clinic in 3 months (3) Osteoarthritis of knees, bilateral: Comment: Pain is controlled with last cortisone injections 2023. Code(s): M17.0 - Bilateral primary osteoarthritis of knee Category: Medical Qualifiers: Osteoarthritis type: primary Qualified Code(s): M17.0 - Bilateral primary osteoarthritis of knee Plan: Monitor clinically Return to clinic in 3 months (4) Left shoulder pain: Comment: Likely due to rotator cuff tendinopathy/calcific tendonitis as noted on x-ray 05/2024. Code(s): M25.512 - Pain in left shoulder Category: Medical Qualifiers: Chronicity: chronic Qualified Code(s): M25.512 - Pain in left shoulder; G89.29 - Other chronic pain Plan: Continue PT I recommend that she have a regular exercise routine Return to clinic in 3 months Medications: New methylprednisolone (Medrol (Pancho)) 4 mg PO PER PKG DIR 21 ea 1RF Discontinued prednisone Take 2 tablet daily 7 days then 1 tablet daily 1 week then stop. Take prednisone with food. Hold naproxen. Discontinued Reason: Doctor's Order 5 mg PO DIRECTED 21 tabs 0RF Coding Level of Care Code Est Pt Level 4 (03782) Complex visit Add On G2211 Diagnoses Erosive osteoarthritis of hands, bilateral M15.4 Bilateral carpal tunnel syndrome G56.03 Primary osteoarthritis of both knees M17.0 Osteoarthritis type: primary Chronic left shoulder pain M25.512; G89.29 Chronicity: chronic
--- OUTSIDE RECORDS SUMMARY | 2025-01-17 15:26 | XMS_ITS | Data Portability ---
Author Organization [facility] - [facility], Allergy Address [address] [place] [address] Assessment Encounter Date Assessment Date Assessment LastModified [...] internal auditory canal, w/wo contrast 2024 025 [facility] Mri Department, [address] [place] [address], [address], 12:07:17 Medication Orders None recorded. Patient TargetsNo targets recorded. Patient InstructionsNo instructions recorded. Reason for Referral None Reported. Results Created Date Observation Date Name Description Value Unit Range Abnormal Flag Note LastModifiedBy Organization Detail LastModifiedTime 07/26/19 audio gram No observ ation record ed. BARCODE Not Available 2024 11:28:52 08/13/19 25 08/11/2024 MR brain wo and W contr ast See Note [facility] , a member of [employer] [facility] t Name: RON MUHAMMAD Date of : 1960 Reason for Exam: dizzin ess Exam Date: 2024 [id number] EST Report Status : Final Orderi ng [...] Date: 2024 10:07 ET Workst ation ID: [facility] [id number] Transc ribed By: Self Edit Transc ribed Date: 2024 09:46 ET [email or web address] [facility] U/S Dept [address] [place], [address], 08/31/2024 08:39:36 Result Notes None recorded. 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, unspecifi ed ear; Note: Date Diagnosed : 11/25/2015 4:52 PM (H83.09) Not Available [facility] 4 03:19:14 Dizziness and giddiness 491621068 Active 2015 Dizziness and giddiness ; Note: Date Diagnosed : 11/25/2015 4:52 PM (R42) Not Available [facility] 4 03:19:14 Abnormal auditory perceptio n 36105682 Active 2020 Other abnormal auditory perceptio ns, left ear; Note: Date Diagnosed : 11/27/2020 9:21 AM (H93.292) Not Available [facility] 4 03:19:14 Otalgia of left ear 0963856998 Active 2020 Otalgia, left ear; Note: Date Diagnosed : 11/27/2020 6:27 PM (H92.02) Not Available [facility] 4 03:19:14 Obstructi ve sleep apnea syndrome 37568022 Active 2024 KATTY ODONNELL MD [address] [facility],[place] [address], [place], [address] , [facility] 15:47:35 Problem Notes None recorded. Procedures Surgical History Date Name Laterality Status Provider Name and Address Organization Details Recorded Time 07/25/19 25 Fiberoptic Laryngoscopy (Comprehensive) completed KATTY ODONNELL MD [address] [facility],[place] [address], [place], [address], [facility] 07/24/2024 15:45:35 07/25/19 25 Air & Speech Audio with Tymps - 78175, 78240 & 68362 completed JENNA RAMIRES [address] [facility],[place] [address], [place], [address], [facility] 07/24/2024 14:44:50 Imaging Results None recorded. Procedure Notes None recorded. Medical Equipment None Reported. Allergies Allergen ID Allergen Name Allergen Category Reaction Reaction Severity Criticality Documentation Date Start Date Code Code System Note Provider Name and Address Organization Details Recorded Time 652433 Celebrex medicatio n other Not available Not available 07/06/2023 31258 7 RxNorm React ion: Unkno wn; Not Available [facility] 01:21:00 Medications Name Sig Start Date Stop [...] mg tablet 07/24 completed Medicati on ID: [id number] B rand Name: atorvast atjama larsen Method: [...] mg tablet 07/24 completed Medicati on ID: [id number] B rand Name: predniso ne Send Method: E-Prescr ibed Sub s Allowed: subs OK Speci al Instruct ion: TAKE 3 TABLETS BY MOUTH EVERY DAY X3DAYS 2 TABLETS BY MOUTH EVERY DAY X3DAYS THEN 1 TABLET BY MOUTH EVERY DAY X5DAYS M edicatio nGeneric Name: predniso ne Not Available Not Available Not Available acetamino phen 500 mg tablet 07/24 completed Medicati on ID: 287217 B rand Name: acetamin ophen Se nd [...] drops,estee pension 07/24 completed Medicati on ID: [id number] B rand Name: fluorome tholone Send Method: E-Prescr ibed Sub s Allowed: subs OK Medic ationGen ericName : fluorome tholone Not Available Not Available Not Available losartan 25 mg tablet TAKE 1 TABLET BY MOUTH DAILY 07/24 completed Not Available Not Available Not Available omeprazol e 20 mg capsule,d elayed release 11/27 completed Medicati on ID: [id number] D uration Value: 30 Brand Name: omeprazo le Send Method: E-Prescr ibed Sub s Allowed: subs OK Speci al Instruct ion: TK 1 C PO D PRF REFLUX M edicatio nGeneric Name: omeprazo le Not Available Not Available Not Available gabapenti n 100 mg capsule 11/27 completed Medicati on ID: [id number] B rand Name: gabapent in Send Method: [...] spray,estee meza 11/27 completed Medicati on ID: [id number] D uration Value: 30 Brand Name: fluticas [...] Updated DateTime 07/24/2024 154.94 cm 34 kg/m2 77492.63 g Laquita Arboleda [facility] 07/24/2024 15:33:58 Social History None recorded. Functional Status None recorded. Mental Status None recorded. Family History Nothing Reported. Medical History Condition Response Arthritis Y Asthma Y Gynecological HistoryNo gynecological history recorded. Obstetrics History GPAL:G 0 P 0 0 0 0 Past Encounters Encounter ID Performer Location Encounter Start Date Encounter Closed Date Diagnosis/Indication Diagnosis SNOMED-CT Code Diagnosis ICD10 Code Diagnosis IMO Codes Diagnosis Note [id number] KATTY ODONNELL MD [facility] [address] [address] 07/24/2024 14:34:45 07/24/2024 15:52:28 Otalgia of left ear 1109563916 H92.02 Right Ear:Normal hearing through 4K Hz sloping to a mild SNHL with excellent speech discrimina tion.Type A tympanogra m.Left Ear:Normal hearing through 4K Hz sloping to a mild SNHL with excellent speech discrimina tion.Type A tympanogra m. Dizziness and giddiness 045636501 R42 Obstructiv e sleep apnea syndrome 19997391 G47.33 43268 Health Concerns Section Related Observation LastModified by Organization Detai ls LastModified Time None Recorded Concern Status LastModified by Organization Details LastModified Time None Recorded Advance Directives Directive None Recorded Payers Insurance Date Sequence Insurance Name Policy Number Policy Giordano Covered Member ID Giordano Member ID Guarantor Name 07/24/2024 1 [facility] - DOS ON OR AFTER 2022 - MEDICARE ADVANTAGE [place] (MEDICARE REPLACEMENT/ADV ANTAGE - PPO) Ron Muhammad [id number] Ron Muhammad Notes Date Note Type Note [...] aCPAP for sleep apnea. KATTY ODONNELL MD [address] [place] [address], [place], [address], [place] [facility] 07/26/2024 09:35:03 OBGyn Episode No OBEpisode recorded.
--- OUTSIDE RECORDS SUMMARY | 2025-01-17 15:26 | XMS_ITS | Clinical Summary ---
Author Organization [facility] Address [address] [place] [address] Phone Care Team Providers Care Fabric Coating Supervisor Name Role Phone Partha Graham Primary Care Provider [phone] Allergies Active Allergy Reactions Criticality Noted Date [...] Encounters Date Type Department Care Team Description 01/10/[address] [facility] [address] [place] [address] Ki Vasquez MD from Last 3 Months Immunizations Immunization Administration Dates Next Due Influenza Quadravalent, MDCK [...] DX: Abnormal Pap smear of cervix; COMMENT: [id number] Cone biopsy Unspecified asthma(493.90) DX:Un specified asthma(493.90); [...] Health Maintenance Due Date Last Done Comments RSV Immunization Adult Patients (1 - Risk 50-74 years 1-dose series) 2012 Zoster Vaccines (1 of 2) 2012 Pneumococcal Vaccine: 50+ Years (2 of 2 - PCV) 04/06/2019 04/06/2018 Medicare Annual Wellness Visit 01/31/2022 Social Influencers of Health Screening 01/31/2022 DTaP,Tdap,and Td Vaccines (3 - Td or Tdap) 11/25/2023 11/24/2013, 11/04/2009 Depression Screening 02/23/2024 COVID-19 Vaccine (1 - 2024- season) 2024 Influenza Vaccine (#1) 2024 9, 11/03/2017, 11/12/2016, Additional history exists Cervical Cancer Screening: HPV 12/05/2024 12/06/2019 Hypertension/CHF/CAD Annual BMP Blood Test 12/20/2024 06/24/2022, 12/31/2021 Colorectal Cancer Screening: FIT-DNA (Cologuard) 08/03/2025 08/03/2022 Breast Cancer Screening 03/02/2026 03/02/19 25, 07/07/2021, 01/12/2017 Cholesterol Screening (Lipid Panel) 06/25/2027 [...] age to complete this topic Meningococcal B Vaccine Aged Out No l onger eligible based on patient's age to complete this topic RSV Immunization Patients Under 20 months Aged Out No longer eligible based on patient's age to complete this topic Varicella Vaccines Aged Out No longer eligible based on patient's age to complete this topic Procedures Procedure Name Priority Date/Time Associated Diagnosis Comments MG MAMMO DIGITAL SCREENING W MARIO BILAT Routine 03/02/2024 9:56 AM EST Low back pain, unspecified ANNUAL BMP BLOOD TEST Routine 12/31/2021 HEPATITIS C SCREENING Routine 07/04/2021 HIV SCREENING Routine 07/04/2021 LIPID PANEL Routine 07/04/2021 HPV Routine 12/06/2019 COLONOSCOPY Routine 08/02/2014 from Last 3 Months or Most Recently Relevant to Health Maintenance Results * MG Mammo Digital Screening w Mario bilat (03/02/2024 9:56 AM EST) Anatomical Region Laterality Modality Breast Bilateral Mammography 03/02/2024 1:20 PM EST Impressions 03/02/2024 1:58 PM EST No mammographic evidence of malignancy. No suspicious interval change. A negative mammogram in the presence of a clinically suspicious palpable abnormality does not preclude the possibility of malignancy or alter the indications for biopsy. ASSESSMENT: BI-RADS 1: NEGATIVE RECOMMENDATION(S): 1: Routine screening mammogram BILATERAL in 1 year. -------- FINAL REPORT -------- Dictated By: Kings Jean Dictated Date: 03/02/2024 13:20 ET Assigned Physician: Kings Jean Reviewed and Electronically Signed By: Kings Jean Signed Date: 03/02/2024 13:58 ET Workstation ID: [id number] Transcribed By: Self Edit Transcribed Date: 03/02/2024 13:28 ET Narrative 03/02/2024 1:58 PM EST EXAM: SCREENING MAMMOGRAPHY, BILATERAL HISTORY: SCREENING. No additional history. COMPARISON: 08/27/2023, 07/06/2022, 11/14/2019 TECHNIQUE: Synthesized CC and MLO projections of each breast. Tomosynthesis of each breast in the CC and MLO projections. ADDITIONAL IMAGING: None Computer-aided detection was employed with the [employer] AI 3-D. TISSUE DENSITY: There are scattered areas of fibroglandular density. (BI-RADS category B) FINDINGS: RIGHT BREAST: No suspicious mass. No suspicious calcification. No distortion. No additional suspicious right breast findings LEFT BREAST: No suspicious mass. No suspicious calcification. No distortion. No additional suspicious left breast findings Procedure Note Kings Jean MD - 03/02/2024 EXAM: SCREENING MAMMOGRAPHY, BILATERAL HISTORY: SCREENING. No additional history. COMPARISON: 08/27/2023, 07/06/2022, 11/14/2019 TECHNIQUE: Synthesized CC and MLO projections of each breast.Tomosynthesis of each breast in the CC and MLO projections. ADDITIONAL IMAGING: None Computer-aided detection was employed with the [employer] AI 3-D. TISSUE DENSITY: There are scattered [...] Signed Date: 03/02/2024 13:58 ET Workstation ID: [id number] Transcribed By: Self Edit Transcribed Date: 03/02/2024 13:28 ET Result [facility] Partha MENDOZA IMG BI PROCEDURES Final Result * Annual BMP Blood Test (12/31/2021) [facility] Annual BMP Blood Test abstracted Result [facility] Provider HEALTH MAINTENANCE Final Result * HIV Screening (07/04/2021) [facility] HIV Screening abstracted Result [facility] HEALTH MAINTENANCE Final Result * Hepatitis C Screening (07/04/2021) [facility] Hepatitis C Screening abstracted Result [facility] Provider HEALTH MAINTENANCE Final Result * (ABNORMAL) Lipid panel (07/04/2021) [facility] LDL/HDL Ratio 5(A) 0 - 4 Triglycerides 436(A) 0 - 150 mg/dL Cholesterol 248(A) 0 - 200 mg/dL HDL 52 >=40 mg/dL LDL Cholesterol 109(A) 0 - 100 mg/dL Blood Venous blood specimen / Unknown Result [facility] Provider LAB BLOOD ORDERABLES Kavya l Result * Cervical Cancer Screening: HPV (12/06/2019) [facility] Cervical Cancer Screening: HPV negative, abstracted Result [facility] Romeo [facility] HEALTH MAINTENANCE Final Result * Colonoscopy (08/02/2014) [facility] Colonoscopy no interpretation , abstracted Anatomical Region Laterality Modality Other Result [facility] HEALTH MAINTENANCE Final Result from Last 3 Months or Most Recently Relevant to Health Maintenance Insurance [employer] MEDICARE Member Subscriber Plan / Payer (Ef fective 2020-Present) Name:MUHAMMADRON Relation to Subscriber:Self Name:Lacie Muhammadmin Payer ID:[id number] Group ID:[id number] Type:Not on file Address: [facility] [address] [place] [address] Care Teams Fabric Coating Supervisor Relationship Specialty Start Date End Date Partha Graham PA [address] [place] [address] PCP - General Physician Drafter Electronic 03/02/24
== END 2025-01-17 13:30 | disposition home or self-care (01) ==
LOC: HO.RHES 12:22
PROVIDERS: PCP Physician Assistant; Visit Provider Internal Medicine Rheumatology
DX: M15.4 Erosive (osteo)arthritis (principal); G56.03 Carpal tunnel syndrome, bilateral upper limbs; M17.0 Bilateral primary osteoarthritis of knee; M25.512 Pain in left shoulder; G89.29 Other chronic pain
CPT/HCPCS: 99214; G2211

== ENCOUNTER → 2025-01-17 12:22 | Outpatient (BNVA) | payer OTHER, SELFPAY | PROVIDERS: Visit Provider Internal Medicine Rheumatology | DX: G56.03 Carpal tunnel syndrome, bilateral upper limbs (principal); M17.0 Bilateral primary osteoarthritis of knee; G89.29 Other chronic pain; M25.512 Pain in left shoulder | CPT/HCPCS: 99212 ==